=== PATIENT | female | born 1990 | race Caucasian/White ===

== ENCOUNTER 2017-01-02 18:30 | Inpatient (IN) | payer OTHER, BC ==
[~2017-01-02] VITALS: Ht 175.3 cm; Wt 139.5 kg
[2017-01-02] MEDS: INSULIN REGULAR 250 UNITS in SODIUM CHLORIDE 0.9% 250ML 250 ML IV PRN ×2 (11:38→21:51)
[~2017-01-02 18:30] MED LIST: ALBUAER2 INH; CALC500T83 PO; PRENTAB26 PO
[2017-01-02] MEDS ORDERED: DEXTROSE 5% 1000ML 1,000 ML IV SCH (18:57)
[2017-01-02] MEDS ORDERED: SODIUM CHLORIDE 0.9% 1000ML 1,000 ML IV SCH (18:57)
[2017-01-02] MEDS ORDERED: LACTATED RINGER'S 1000ML 1,000 ML IV PRN (18:57)
[2017-01-02] MEDS ORDERED: DEXTROSE 50% 50 ML SYR IV PRN (19:00)
[2017-01-02] MEDS: LACTATED RINGER'S 1000ML 1,000 ML IV SCH (19:36)
[2017-01-02] MEDS: VANCOMYCIN INJ 1,000 MG in SODIUM CHLORIDE 0.9% 250ML 250 ML IV SCH (19:36)
--- NOTE | 2017-01-02 19:42 | HISTORY & PHYSICAL EXAMINATION ---
DATE OF ADMISSION: 01/02/2017 CHIEF COMPLAINT: Leakage of fluid. HISTORY OF PRESENT ILLNESS: The patient is a 26-year-old G1, P0 at 35 weeks and 3 days of gestation who felt a leakage of fluid from vagina at around 6:00 p.m. tonight and it has been coming as a gush and trickling since then. The fluid has been clear. No vaginal bleeding and no contractions, and she reports good movements. She denies headaches, change in her vision, nausea, vomiting, epigastric or right upper quadrant pain. She denies fever, chills, chest pain, or shortness of breath. Her has been complicated by: 1. History of PCOS before . She was on metformin until 12 weeks and then she stopped. 2. Class 3 obesity. She had baseline preeclamptic labs which were normal, growth scan every 6-8 weeks. Last growth scan was done on 12/23/16 and EFW was 27OO GRS. She was scheduled for NST b.i.d. after 36 weeks. 3. Gestational diabetes. She was started on glyburide; she is on 5 mg daily now and fingersticks have been stable. 4. Alcohol consumption during . She had 13 ounces of alcohol intake around 3 weeks of . She had a echo which was normal. PAST MEDICAL HISTORY: As above, history of asthma, history of PCOS, history of insulin resistance, and history of peanut allergy. PAST SURGICAL HISTORY: [place] teeth extraction and removal of gallbladder in 2011. SOCIAL HISTORY: The patient was a smoker and she quit in March of 2016. She used alcohol in first trimester as above. She denies drug use. She works as an EMT in the ambulance. MEDICATIONS: vitamins, glyburide 5 mg daily, calcium 500 mg daily, Ventolin HFA as needed. ALLERGIES: AMOXICILLIN CAUSED SYNCOPE, AMPICILLIN CAUSED A RASH, LEVAQUIN CAUSED HIVES AND A RASH, PEANUT OIL CAUSED ANAPHYLAXIS. LABORATORIES: Her blood type is A positive, antibody screen negative, rubella positive, RPR nonreactive, hepatitis B surface antigen negative, HIV negative. BUN, creatinine, AST, ALT were normal in first trimester. H\T\H was 13/39, and 1 hour Glucola was elevated during the first trimester and 3-hour OGGT was normal. Repeat H\T\H was 12/35 and a 1 hour Glucola was elevated and 3-hour OGGT was elevated. GBS is unknown. PHYSICAL EXAMINATION: GENERAL: The patient is alert, oriented x3. She is comfortably sitting in the bed. No complaints. VITAL SIGNS: Stable, afebrile. CARDIOVASCULAR SYSTEM: S1, S2, RRR. LUNGS: Clear to auscultation bilaterally. ABDOMEN: Soft, gravid, [place] 6-1/2 to 7 pounds, morbidly obese. EXTREMITIES: Nontender, no edema. PELVIC: She is grossly ruptured, clear amniotic fluid. Nitrazine positive. Cervix is 4 cm, 50%, minus 3, vertex. heart rate 140s, not reactive yet. [place], no contractions. ASSESSMENT AND PLAN: The patient is a 26-year-old G1, P0 at 35 weeks and 3 days of gestation presenting with premature rupture of membranes. Vital signs stable, afebrile. heart rate reassuring. GBS unknown. She is in early labor. Plan is to admit, start IV fluids, IV insulin management per pharmacy and vancomycin for unknown GBS. I talked to the patient about being and the possible transfer of baby to [facility] where NICU available. She understands. I also talked to the pocket setter conservation of resources commissioner. She is aware and she plans to be in for delivery. BABAK
[2017-01-02 19:47] LABS: HEMATOCRIT 37.9 % (37-47); MEAN CELL VOLUME 88.6 fL (80-100); MEAN CORPUSCULAR HEMOGLOBIN 31.1 pg (25-34); MEAN CORPUSCULAR HGB CONC 35.1 g/dl (32-36); MEAN PLATELET VOLUME 12.5 fL (7.4-10.4); PLATELET COUNT 138 K/uL (130-400); RED BLOOD COUNT 4.28 M/uL (4.2-5.4); WHITE BLOOD COUNT 7.25 K/uL (4.8-10.8)
[2017-01-02 20:18] LABS: ALB/GLOB RATIO 0.6 (0.9-2); ALKALINE PHOSPHATASE 102 U/L (45-117); ALT/SGPT 33 U/L (12-78); AST/SGOT 46 U/L (15-37); BLOOD UREA NITROGEN 10 mg/dl (7-18); BUN/CREATININE RATIO 12.7 (10-20); CALCIUM 9.1 mg/dl (8.5-10.1); CARBON DIOXIDE 22 mmol/L (21-32); CHLORIDE 106 mmol/L (98-107); CREATININE 0.81 mg/dl (0.60-1.20); GLUCOSE 114 mg/dl (70-99); POTASSIUM 3.8 mmol/L (3.5-5.1); SODIUM 139 mmol/L (136-145)
[2017-01-02 21:00] VITALS: Ht 175.3 cm; Wt 139.5 kg
[2017-01-02] MEDS ORDERED: FENTANYL 2MCG/ML ROPIV 1.25MG/ML 100ML BAG EPI ONE (22:23)
[2017-01-02] MEDS ORDERED: FENTANYL CITRATE INJ 50 MCG/1 ML 2 ML VIAL ONE (22:23)
[2017-01-02] MEDS ORDERED: EpHEDrine SULFATE INJ 50 MG/ML AMP ONE (22:23)
[2017-01-02] MEDS ORDERED: BUPIVACAINE 0.25% 30 ML VIAL ONE (22:23)
[2017-01-02] MEDS ORDERED: EpHEDrine SULFATE INJ 50 MG/ML AMP IV PRN (23:00)
[2017-01-02] MEDS ORDERED: NALBUPHINE HCL INJ 10 MG/ML AMP IV PRN (23:00)
[2017-01-02] MEDS ORDERED: NALOXONE HCL INJ 0.4 MG/1 ML VIAL/CARP IV PRN (23:00)
[2017-01-02] MEDS ORDERED: DiphenhydrAMINE HCL 50 MG/ML VIAL IV PRN (23:00)
[2017-01-02] MEDS ORDERED: LACTATED RINGER'S 1000ML 500 ML IV PRN ×2 (23:00→23:25)
[2017-01-02] MEDS ORDERED: ONDANSETRON INJ 2 MG/ML 2 ML VIAL IV PRN (23:00)
[2017-01-02] MEDS ORDERED: NALOXONE HCL INJ 1 MG in SODIUM CHLORIDE 0.9% 1000ML 1,000 ML IV PRN (23:00)
[2017-01-02] MEDS ORDERED: OXYTOCIN 30 UNITS/500ML NSS IV PRN (23:30)
[2017-01-02] MEDS ORDERED: CALCIUM CARBONATE 500 MG CHEWABLE PO PRN (23:45)
[2017-01-02] MEDS ORDERED: GUAIFENESIN SUGAR FREE 100 MG/5 ML UDC PO PRN (23:45)
[2017-01-03] MEDS ORDERED: ONDANSETRON INJ 2 MG/ML 2 ML VIAL IV PRN
[2017-01-03] MEDS: INSULIN REGULAR 250 UNITS in SODIUM CHLORIDE 0.9% 250ML 250 ML IV PRN ×2 (00:49→01:47)
[2017-01-03] MEDS ORDERED: GLYB5TAB8 PO (05:09)
[2017-01-03] MEDS: LACTATED RINGER'S 1000ML 1,000 ML IV SCH (06:21)
[2017-01-03] MEDS ORDERED: BUPIVACAINE 0.25% 30 ML VIAL ONE (07:06)
[2017-01-03] MEDS ORDERED: FENTANYL CITRATE INJ 50 MCG/1 ML 2 ML VIAL ONE (07:07)
[2017-01-03] MEDS: FENTANYL 2MCG/ML ROPIV 1.25MG/ML 100ML BAG EPI PRN ×2 (07:11→07:58)
[2017-01-03] MEDS: VANCOMYCIN INJ 1,000 MG in SODIUM CHLORIDE 0.9% 250ML 250 ML IV SCH (07:21)
--- NOTE | 2017-01-03 07:34 | Progress Note ---
Progress Note Date of Service Jan 03, 2017. Progress Note Asked to redose epidural for pain. Pt having perineal pain w/ contractions. I informed pt that this is sometimes difficult to treat. On exam, pt had level around T8 b/l. I sat pt upright and gave 5 mL 0.25% bupivicaine and 100 mcg fentanyl in divided doses via epidural catheter from 1502-1867. Pt now feeling "much better". Vitals stable. heart tones unchanged.
[2017-01-03] MEDS ORDERED: ACETAMINOPHEN/CODEINE 300/30MG TAB PO PRN (10:15)
[2017-01-03] MEDS ORDERED: HYDROCORTISONE ACETATE 25 MG SUPP PR PRN (10:15)
[2017-01-03] MEDS ORDERED: OXYTOCIN 30 UNITS/500ML NSS IV PRN (10:15)
[2017-01-03] MEDS ORDERED: BENZOCAINE 20% AER SPR 82.5 GM CAN EXT PRN (10:15)
[2017-01-03] MEDS ORDERED: DIPHTHERIA/TETANUS/PERTUSSIS 0.5 ML SYR/VIAL IM. ONE (10:15)
[2017-01-03] MEDS ORDERED: MEASLES, MUMPS & RUBELLA VIRUS VIAL SQ. ONE (10:15)
[2017-01-03] MEDS ORDERED: SUPERCREAM 0.870 % 15GM JAR EXT PRN (10:15)
[2017-01-03] MEDS ORDERED: OXYCODONE/ACETAMINOPHEN 5-325 TAB PO PRN (10:15)
[2017-01-03] MEDS ORDERED: LANOLIN OINT EXT PRN ×2 (10:15)
[2017-01-03] MEDS ORDERED: ACETAMINOPHEN 325 MG TAB PO PRN (10:15)
--- NOTE | 2017-01-03 10:28 | Progress Note ---
Progress Note Date of Service Jan 03, 2017. Progress Note Delivery Note live female over intact perineum YOUNG with Apgars 8/9 weight pending. Cord blood obtained for cord collection. Placenta delivered spontaneously and intact. No tears. EBL 200 ml. Final sponge and needle instrument count are correct. Mom and baby stable.
--- NOTE | 2017-01-03 11:24 | Anesthesia Procedure Note ---
Anesthesia Epidural Removal Nt Date & Time Jan 03, 2017 at 11:24 Vital Signs Pain Intensity: 0.0 Notes Mental Status: alert / awake / arousable, participated in evaluation Nausea / Vomiting: adequately controlled Pain: adequately controlled Airway Patency, RR, SpO2: stable & adequate BP & HR: stable & adequate Hydration State: stable & adequate Neuraxial Anesthesia: was administered, sensory block is resolved Anesthetic Complications: no major complications apparent, pt satisfied with anesthetic care Epidural: removed without complications, with tip intact
[2017-01-03] MEDS: IBUPROFEN 600 MG TAB PO PRN ×2 (14:25→20:18)
[2017-01-03 15:30] VITALS: BP 127/82; PULSE 85; TEMP 36.4; O2SAT 97; O2SAT 99
[2017-01-03 15:39] VITALS: BP 123/80; PULSE 92; TEMP 36.8; O2SAT 98
[2017-01-03] MEDS ORDERED: NURSING VERBAL MED ORDER ONE (19:45)
[2017-01-03 20:10] VITALS: BP 132/84; PULSE 87; TEMP 36.9
[2017-01-03] MEDS: GUAIFENESIN SUGAR FREE 100 MG/5 ML UDC PO PRN (20:17)
[2017-01-03] MEDS: DOCUSATE SODIUM 100 MG CAP PO SCH (20:19)
[2017-01-03] MEDS: ACETAMINOPHEN/CODEINE 300/30MG TAB PO PRN (20:19)
[2017-01-04 00:20] VITALS: BP 112/75; PULSE 87; TEMP 36.7
[2017-01-04 05:00] VITALS: BP 104/65; PULSE 97; TEMP 37.1
[2017-01-04 06:43] LABS: HEMATOCRIT 34.5 % (37-47)
[2017-01-04] MEDS: IBUPROFEN 600 MG TAB PO PRN ×3 (07:09→19:56)
[2017-01-04] MEDS: ACETAMINOPHEN/CODEINE 300/30MG TAB PO PRN ×2 (07:09→15:35)
[2017-01-04 07:30] VITALS: BP 112/75; PULSE 96; TEMP 36.7
[2017-01-04] MEDS ORDERED: PRENATAL VITAMIN TAB PO SCH (08:00)
[2017-01-04] MEDS ORDERED: FERROUS SULFATE 325 MG TAB PO SCH (08:00)
[2017-01-04] MEDS: DOCUSATE SODIUM 100 MG CAP PO SCH ×2 (08:16→19:57)
[2017-01-04] MEDS: GUAIFENESIN SUGAR FREE 100 MG/5 ML UDC PO PRN ×3 (08:17→19:56)
--- NOTE | 2017-01-04 10:01 | OB/GYN Progress Note ---
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 Subjective conversation w/ patient, physical exam Ambulation: ambulating normally Voiding: no voiding problems Passing Gas: Yes Diet Tolerance: Regular Diet Lochia: Moderate Feeding Type: Breast Feeding Review of Systems Constitutional: No chills, No fatigue, No fever, No problem reported, No sweats , No weakness, No weight loss Respiratory: No cough, No dyspnea at rest, No dyspnea on exertion, No hemoptysis, No problem reported, No shortness of breath, No sputum, No wheezing Cardiac: No PND, No chest pain, No claudication, No edema, No orthopnea, No palpitations, No problem reported Breast: No breast lump, No breast pain, No change in shape, No nipple discharge , No problem reported, No see HPI Abdomen: No GI bleeding, No constipation, No diarrhea, No nausea, No pain, No problem reported, No vomiting Female : No abnormal vaginal bleeding, No dysuria, No hematuria, No incontinence, No problem reported, No see HPI, No urinary frequency, No vaginal discharge VD day 31 pt doing well anticipate disch tomorrow Objective Vital Signs Date Time Temp Pulse Resp B/P Pulse Ox O2 Delivery O2 Flow Rate FiO2 01/04/17 07:30 36.7 96 18 112/75 Room Air 01/04/17 07:30 Room Air 01/04/17 05:00 37.1 97 18 104/65 Room Air 01/04/17 00:20 Room Air 01/04/17 00:20 36.7 87 18 112/75 Room Air 01/03/17 20:10 36.9 87 20 132/84 Room Air 01/03/17 15:39 36.8 92 16 123/80 98 Room Air 01/03/17 15:30 97 Room Air 01/03/17 15:30 36.4 85 18 127/82 99 Room Air 01/03/17 14:00 Room Air Laboratory Results Last 24 Hours Test 01/04/17 06:19 Hemoglobin 12.0 g/dL Hematocrit 34.5 %
[2017-01-04 16:00] VITALS: BP 115/77; PULSE 97; TEMP 36.8
[2017-01-04] MEDS ORDERED: BISACODYL 5 MG TABEC PO SCH (20:00)
[2017-01-05] MEDS: IBUPROFEN 600 MG TAB PO PRN ×2 (00:04→06:07)
[2017-01-05 00:05] VITALS: BP 128/83; PULSE 84; TEMP 36.3
[2017-01-05] MEDS: GUAIFENESIN SUGAR FREE 100 MG/5 ML UDC PO PRN (06:07)
[2017-01-05] MEDS ORDERED: BISACODYL 10 MG SUPP PR PRN (07:00)
--- NOTE | 2017-01-05 07:03 | OB/GYN Progress Note ---
POOL CLEANER Progress Note Date of Service Jan 05, 2017. Subjective conversation w/ patient, physical exam Ambulation: ambulating normally Voiding: no voiding problems Passing Gas: Yes Diet Tolerance: Regular Diet Lochia: Moderate Feeding Type: Breast Feeding Review of Systems Constitutional: No chills, No fatigue, No fever, No problem reported, No sweats , No weakness, No weight loss Respiratory: No cough, No dyspnea at rest, No dyspnea on exertion, No hemoptysis, No problem reported, No shortness of breath, No sputum, No wheezing Cardiac: No PND, No chest pain, No claudication, No edema, No orthopnea, No palpitations, No problem reported Breast: No breast lump, No breast pain, No change in shape, No nipple discharge , No problem reported, No see HPI Abdomen: No GI bleeding, No constipation, No diarrhea, No nausea, No pain, No problem reported, No vomiting Female : No abnormal vaginal bleeding, No dysuria, No hematuria, No incontinence, No problem reported, No see HPI, No urinary frequency, No vaginal discharge VD day #3 pt doing well no complaints d/c home with instructions Objective Vital Signs Date Time Temp Pulse Resp B/P Pulse Ox O2 Delivery O2 Flow Rate FiO2 01/05/17 00:05 36.3 84 20 128/83 Room Air 01/05/17 00:05 Room Air 01/04/17 16:00 36.8 97 18 115/77 Room Air 01/04/17 16:00 Room Air 01/04/17 07:30 36.7 96 18 112/75 Room Air 01/04/17 07:30 Room Air
[2017-01-05 07:15] VITALS: BP 135/85; PULSE 94; TEMP 36.7
[2017-01-05] MEDS ORDERED: MTR600X PO (07:17)
--- NOTE | 2017-01-05 07:19 | Discharge Instructions ---
Discharge Instructions Admission Reason for Admission: Check Rupture Discharge Discharge Diagnosis / Problem: Discharge Goals Goal(s): Routine recovery after delivery Activity Recommendations Activity Limitations: as noted below ACTIVITY RECOMMENDATIONS: * Gradual return to full activity over the next 2-3 weeks. * No lifting - nothing heavier than baby over the next 2-3 weeks. * Do not engage in vigorous exercise, sexual activity or sports until cleared by your physician. * Do not drive or operate any motorized equipment until cleared by your physician. * You may shower/bathe daily. BREAST CARE: If you are not breast feeding: * Wear a supportive bra 24 hours a day for one to two weeks. * Avoid stimulating your breasts and nipples as much as possible during the first few weeks after delivery. * When taking a shower, have the warm water hit your back, not breasts. * When your breasts feel full, apply ice packs. Usually three to four times a day helps ease the discomfort. * Take a mild pain medication (Tylenol/Motrin) when you are uncomfortable. If breast feeding: * Use breast milk to lubricate nipples. Lansinoh cream may be used for sore nipples. You do not need to remove cream prior to breast feeding. If using a different brand of cream, check the label for directions regarding removal of cream prior to nursing. * Wear a supportive bra. * If having problems with breasts or breast feeding, call a erp consultant or your health care provider. EPISIOTOMY CARE: After delivery, if you have an episiotomy (stitches), the following steps will ease discomfort and aid healing. * For the first 24 hours after delivery, place ice packs next to your episiotomy to help reduce swelling. * After the first 24 hour-period, sitz baths, either portable or in the tub, are suggested. A shower with a shower arm sprayed over the episiotomy may be comforting. * Samantha care should be done after each voiding and bowel movement. Squirt warm water from a plastic bottle over the perineum (region of the body between the anus and urinary opening) and pat dry. * Use Dermoplast to ease discomfort. Shake container. Adkins directly over the episiotomy. * Place a Tucks on a clean sanitary pad next to your episiotomy. OVER THE COUNTER MEDICATION: * For discomfort or pain, you may use Acetaminophen (Tylenol), Ibuprofen (Advil ), or Naproxen (Aleve) following the package directions. * For constipation you may use Colace following the package directions. SPECIAL CARE INSTRUCTIONS: When you are discharged from the hospital, it is important for you to follow the instructions listed below: * During the first week at home, you should be able to care for yourself and your baby. In addition, the usual light household activities are encouraged. * Limit your activities to the way you feel. Do not try to clean the house or move furniture. Be sensible. * If you actively engage in sports and have done so up until the time of your delivery, you may resume these activities as soon as you feel able. This may take up to one month or even longer. Use good judgment. * Continue to take your vitamins for at least six weeks after the of your baby. * Your diet need not be limited unless you were on a special diet before your delivery. Breast-feeding mothers need around 2500 calories per day and at least 64-80 ounces of fluid per day (8 to 10 glasses). * You should eat foods from the four major food groups. Crash diets or fad diets are to be avoided. Eating lean meats, fresh fruits and vegetables, low-fat dairy products, high fiber foods and a regular exercise program, will help you get back to your pre- weight without putting your health at risk. * Constipation is sometimes a problem after delivery. Take a mild laxative as needed. If breast feeding, Milk of Magnesia is acceptable to use. You may use a suppository or Fleets enema if no episiotomy. * A daily shower or tub bath is suggested. Be sure to thoroughly and gently dry the perineum. * A bloody vaginal discharge will usually continue until around four weeks post . A small amount of bleeding may continue for as long as six weeks. Vaginal discharge changes from the bright red bleeding after delivery to pink then brownish and finally yellowish-pink before becoming white and disappearing. * Bleeding may increase with activity. Your first period may come in 4-8 weeks. If you are breast feeding, your period may be delayed even longer. * [place] (sex) can begin whenever both you and your partner feel comfortable and do not have any form of genital infection. It is recommended that you wait until after your return appointment and discuss with your physician. If you have questions, please talk to your health care practitioner. A condom should be used to prevent infection and . * Foreplay, gentle intercourse and lubrication is very important the first several times to prevent pain. A water-based lubricant such as K-Y jelly or Astroglide may be used. * Tampons may be used six weeks after delivery. * Douching should be avoided for 6 weeks after delivery. * If you have RH negative blood and your baby is RH positive, you will receive RHOGAM by injection prior to discharge. The nurse will give you a card to keep with you that has the date and place that you received RHOGAM after delivery. * During your care, you had a Rubella screen done to check for the presence of rubella antibodies in your blood. If your test was negative, you will receive a Rubella vaccine prior to discharge. This vaccine may cause a fever, soreness at the injection site and flu-like symptoms. If these symptoms persist, notify your health care practitioner. is not advised for three months after a Rubella vaccine. There is a higher chance of having a baby with defects if conceived within three months of getting the vaccine. * If you were discharged 24 hours from delivery or before 48 hours: Visiting nurses will come to your home 48 hours after discharge to assess you and your baby. The visiting nurse will meet with you while you are in the hospital to arrange a time and get directions to your home. * Verbalizes understanding of car seat law as reviewed with patient nursing. * Car Seat hand-out given and reviewed with patient by nursing. * Shaken baby information reviewed with patient by nursing. Call you doctor if: * Heavy bleeding (saturating several pads an hour) or passing clots the size of your fist. * A fever >101 degrees F (38.3 degrees C) on two occasions four hours apart and/or chills. * Unusual pain in the pelvic or vaginal areas. * "Baby Blues" lasting longer than two weeks. If you have any questions or concerns, call your health care practitioner at . FOLLOW-UP VISIT: * Please call the office at to schedule a 6 week examination. It is important you keep this appointment. * It is important for you to make arrangements for either yearly or twice yearly check-ups thereafter. . Current Hospital Diet Patient's current hospital diet: Regular OB Diet Discharge Diet Recommended Diet: Regular Diet Pending Studies Studies pending at discharge: no Medical Emergencies . Who to Call and When: Medical Emergencies: If at any time you feel your situation is an emergency, please call 911 immediately. . Non-Emergent Contact Non-Emergency issues call your: Specialist . . "Provider Documentation" section prepared by eJm Acosta. VTE Core Measure Inpt VTE Proph given/why not?: Treatment not indicated
[2017-01-05] MEDS: DOCUSATE SODIUM 100 MG CAP PO SCH (08:12)
[2017-01-05 10:55] VITALS: BP_DIAS 85; PULSE 94; TEMP 36.7
[2017-05-31] MEDS ORDERED: GLC/500 PO (14:44)
== END 2017-01-05 10:55 | disposition home or self-care (01) | DRG 775 ==
LOC: C.LD 18:30 → C.OPB 18:30 → C.LD 19:01 → C.OBG 01-03 14:06
PROVIDERS: ADMIT Obstetrics & Gynecology; ATTEND Obstetrics & Gynecology
PROC: 10E0XZZ Delivery of Products of Conception, External Approach (ICD-10-PCS; principal; 2017-01-03)
DX: O42.913 Preterm premature rupture of membranes, unspecified as to length of time between rupture and onset of labor, third trimester (principal); O24.425 Gestational diabetes mellitus in childbirth, controlled by oral hypoglycemic drugs; O99.214 Obesity complicating childbirth; Z3A.35 35 weeks gestation of pregnancy; Z37.0 Single live birth; E66.9 Obesity, unspecified; Z79.899 Other long term (current) drug therapy

== ENCOUNTER 2017-05-30 14:23 | Emergency (ER) | payer OTHER, BC ==
[~2017-05-30] VITALS: Ht 175.3 cm; Wt 145.6 kg
[~2017-05-30 14:23] MED LIST changes: +GLYB5TAB8 PO; +MTR600X PO
[2017-05-30 14:29] VITALS: Ht 175.3 cm; Wt 145.6 kg
[2017-05-30] MEDS ORDERED: ONDANSETRON INJ 2 MG/ML 2 ML VIAL IV STA (14:55)
[2017-05-30] MEDS ORDERED: SODIUM CHLORIDE 0.9% 1000ML 1,000 ML IV STA (14:55)
[2017-05-30] MEDS ORDERED: ACETAMINOPHEN 500 MG TAB PO STA (14:55)
[2017-05-30 15:30] VITALS: TEMP 36.7
[2017-05-30 15:34] LABS: BASO % 0.1 %; BASO ABS # 0.01 K/uL (0-0.2); COMPLETE YES; EOS % 1.6 %; IG% 0.2 %; LYMPH % 9.6 %; LYMPH ABS # 0.91 K/uL (1.2-3.4); MEAN CELL VOLUME 88.1 fL (80-100); MEAN CORPUSCULAR HEMOGLOBIN 30.6 pg (25-34); MEAN CORPUSCULAR HGB CONC 34.8 g/dl (32-36); MEAN PLATELET VOLUME 11.2 fL (7.4-10.4); MONO % 5.4 %; NEUT % 83.1 %; PLATELET COUNT 219 K/uL (130-400); RED BLOOD COUNT 4.77 M/uL (4.2-5.4); WHITE BLOOD COUNT 9.49 K/uL (4.8-10.8)
[2017-05-30 15:46] LABS: PARTIAL THROMBOPLASTIN RATIO 0.9; PROTHROMBIN TIME (PATIENT) 10.2 SECONDS (9.0-12.0)
[2017-05-30 15:52] LABS: BUN/CREATININE RATIO 17.9 (10-20); CALCIUM 9.2 mg/dl (8.5-10.1); CREATININE 0.95 mg/dl (0.60-1.20); POTASSIUM 3.7 mmol/L (3.5-5.1)
[2017-05-30 16:08] LABS: PREG INTERNAL NEGATIVE QC NEG CLEAR BACKGROUND; PREG INTERNAL POSITIVE QC POS CONTROL LINE
--- NOTE | 2017-05-30 17:03 | DIAGNOSTIC IMAGING REPORT ---
HEAD WITHOUT CONTRAST (CT) CLINICAL HISTORY: 27 years-old Female with syncope/headache. TECHNIQUE: Multiple axial CT images of the head were obtained without contrast. A dose lowering technique was utilized adhering to the principles of ALARA. CT DOSE: 720.95 mGycm COMPARISON: 10/21/2015. FINDINGS: No acute intracranial hemorrhage, midline shift, mass, large territorial ischemia or abnormal extra-axial collection. Brain parenchyma appears normal. The calvarium is intact. The paranasal sinuses, mastoid air cells, and middle ear cavities are clear. IMPRESSION: No acute intracranial abnormality. The above report was generated using voice recognition software. It may contain grammatical, syntax or spelling errors. Electronically signed by: Ronnie Marquez M.D. 05/30/2017 5:02 PM Dictated Date/Time: 05/30/2017 5:01 PM
--- NOTE | 2017-05-30 17:31 | DIAGNOSTIC IMAGING REPORT ---
CHEST 2 VIEWS ROUTINE, STERNUM MIN 2 VIEWS HISTORY: 27 years-old Female syncope COMPARISON: Chest radiograph 12/03/2015 TECHNIQUE: 2 views of the chest with 3 views of the sternum FINDINGS: CHEST: Cardiomediastinal and hilar silhouettes are within normal limits. There is no pneumothorax or pleural effusion. There is resolution of the previously described nodular right upper lobe airspace opacities. The bones appear to be intact grossly. Surgical clips in the upper abdomen suggest prior cholecystectomy. STERNUM: On image 3 of 3, there is apparent slight cortical step-off of the inferior sternum anteriorly near the xiphoid process. The remainder of the sternum appears unremarkable. IMPRESSION: 1. No acute cardiopulmonary process. No pneumothorax. 2. Slight cortical step off of the inferior most sternal cortex anteriorly suspicious for acute fracture near the xiphoid process. Correlate with point tenderness. The above report was generated using voice recognition software. It may contain grammatical, syntax or spelling errors. Electronically signed by: Ronnie Marquez M.D. 05/30/2017 5:30 PM Dictated Date/Time: 05/30/2017 5:25 PM
[2017-05-30 17:43] VITALS: O2SAT 99
--- NOTE | 2017-05-30 18:33 | EMERGENCY ROOM VISIT NOTE ---
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 "That's the last thing I remember." pt had syncopal episode ground level. +LOC for approximately 10-15 seconds. prehospital sabrina received 4mg zofran sublingual pt is 4-5 months post . patient states she got period on but period was 10 days late. pt unsure if she is at this time. patient states she continues to feel dizzy when she stands. History of Present Illness The patient is a 27 year old female who presents to the Emergency Room via EMS with complaints of syncopal episode. The patient states that she was at the scene of an EMS call and she was in a house and got very very hot. She then started feeling nauseated. She stepped outside and felt lightheaded so she leaned against a railing. The patient states the next thing she knows was someone was calling her name. She was laying on the ground. A title inspector that was at the scene stated that they saw her fall backwards. The patient does not know if she hit her head. The patient does admit to a headache but denies any visual changes dizziness. She still complains of nausea but denies any vomiting. The patient is also complaining of pain at the lower portion of her sternum on palpation. The patient denies any chest pain or shortness of breath. The patient denies any abdominal pain or any neck pain. The patient denies any back pain or extremity pain. The patient states there is a chance she could be . She states that urine test do not work on her. The patient does admit to passing out on several occasions in the past . She states that she has had to vagal syncope episodes when she was 14 and 20. She also had a syncopal episode after taking amoxicillin approximately one and a half years ago. Review of Systems 10 system review was performed and was negative unless stated otherwise history of present illness. Past Medical/Surgical History Medical Problems: (1) Asthma, Unspecified (2) CAP (community acquired pneumonia) (3) CAP (community acquired pneumonia) (4) Cholelithiasis without obstruction (5) PCOS (polycystic ovarian syndrome) (6) Pre-diabetes (7) premature rupture of membranes in third trimester (8) URIC ACID NEPHROLITHIAS Surgical Problems: (1) History of cholecystectomy (2) History of wisdom tooth extraction Family History Diabetes mellitus FH: cancer FH: diabetes mellitus FH: gallbladder disease FH: heart disease FH: hypertension FH: kidney disease FH: lung disease Social History Smoking Status: Former Smoker Alcohol Use: occasionally Drug Use: none Marital Status: in relationship Housing Status: lives with family Occupation Status: employed Current/Historical Medications Scheduled Metformin Hcl (Glucophage), 500 MG PO DAILY Allergies Coded Allergies: Amoxicillin (Verified Allergy, Severe, ELAVATED BP/PASSED OUT, 01/02/17) Levofloxacin (Verified Allergy, Intermediate, Rash, 01/02/17) Ampicillin (Verified Allergy, Mild, RASH, 01/02/17) noted 12/03/15 Sulbactam (Verified Allergy, Mild, RASH, 01/02/17) noted 12/03/15 Peanut (Verified Allergy, Unknown, ., 01/02/17) Physical Exam Vital Signs Date Time Temp Pulse Resp B/P (MAP) Pulse Ox O2 Delivery O2 Flow Rate FiO2 05/30/17 17:43 95 20 121/63 99 Room Air 05/30/17 15:30 36.7 103 18 103/64 97 Room Air 05/30/17 15:20 103 05/30/17 15:15 94 129/76 105 103/66 05/30/17 14:29 36.7 99 18 124/73 97 Room Air Physical Exam GENERAL: Obese 27-year-old female appears in no acute distress. MENTAL Status: Alert and oriented 3. HEAD: Atraumatic, nontender to palpation. EYES: PERRLA. EOMs intact. EARS: Canals clear. TMs without hemotympanum NECK: Supple, no lymphadenopathy noted. No carotid bruits noted. LUNGS: Clear auscultation without wheezes rales or rhonchi. CARDIAC: Regular rate and rhythm without murmur. Pulses is full and equal throughout. CHEST WALL: The patient is nontender to palpation over the ribs. She does have tenderness palpation over the lower sternum. No bony abnormality noted. ABDOMEN: Positive bowel sounds all 4 quadrants. Soft, nontender to palpation without organomegaly or masses. SPINE: Entire spine nontender to palpation. MUSCULOSKELETAL: Patient is able to move her arms and legs without difficulty. NEURO:Cranial nerves two through 12 intact. Cerebellar function intact with [id number]. Fine motor intact with alternating finger motions. Medical Decision & Procedures ER Provider Diagnostic Interpretation: CHEST 2 VIEWS ROUTINE, STERNUM MIN 2 VIEWS HISTORY: 27 years-old Female syncope COMPARISON: Chest radiograph 12/03/2015 TECHNIQUE: 2 views of the chest with 3 views of the sternum FINDINGS: CHEST: Cardiomediastinal and hilar silhouettes are within normal limits. There is no pneumothorax or pleural effusion. There is resolution of the previously described nodular right upper lobe airspace opacities. The bones appear to be intact grossly. Surgical clips in the upper abdomen suggest prior cholecystectomy. STERNUM: On image 3 of 3, there is apparent slight cortical step-off of the inferior sternum anteriorly near the xiphoid process. The remainder of the sternum appears unremarkable. IMPRESSION: 1. No acute cardiopulmonary process. No pneumothorax. 2. Slight cortical step off of the inferior most sternal cortex anteriorly CHEST 2 VIEWS ROUTINE, STERNUM MIN 2 VIEWS HISTORY: 27 years-old Female syncope COMPARISON: Chest radiograph 12/03/2015 TECHNIQUE: 2 views of the chest with 3 views of the sternum FINDINGS: CHEST: Cardiomediastinal and hilar silhouettes are within normal limits. There is no pneumothorax or pleural effusion. There is resolution of the previously described nodular right upper lobe airspace opacities. The bones appear to be intact grossly. Surgical clips in the upper abdomen suggest prior cholecystectomy. STERNUM: On image 3 of 3, there is apparent slight cortical step-off of the inferior sternum anteriorly near the xiphoid process. The remainder of the sternum appears unremarkable. IMPRESSION: 1. No acute cardiopulmonary process. No pneumothorax. 2. Slight cortical step off of the inferior most sternal cortex anteriorly HEAD WITHOUT CONTRAST (CT) CLINICAL HISTORY: 27 years-old Female with syncope/headache. TECHNIQUE: Multiple axial CT images of the head were obtained without contrast. A dose lowering technique was utilized adhering to the principles of ALARA. CT DOSE: 720.95 mGycm COMPARISON: 10/21/2015. FINDINGS: No acute intracranial hemorrhage, midline shift, mass, large territorial ischemia or abnormal extra-axial collection. Brain parenchyma appears normal. The calvarium is intact. The paranasal sinuses, mastoid air cells, and middle ear cavities are clear. IMPRESSION: No acute intracranial abnormality. The above report was generated using voice recognition software. It may contain grammatical, syntax or spelling errors. Laboratory Results 05/30/17 15:15 Red Blood Count 4.77, Mean Corpuscular Volume 88.1, Mean Corpuscular Hemoglobin 30.6, Mean Corpuscular Hemoglobin Concent 34.8, Mean Platelet Volume 11.2, Neutrophils (%) (Auto) 83.1, Lymphocytes (%) (Auto) 9.6, Monocytes (%) (Auto) 5.4, Eosinophils (%) (Auto) 1.6, Basophils (%) (Auto) 0.1, Neutrophils # (Auto) 7.89, Lymphocytes # (Auto) 0.91, Monocytes # (Auto) 0.51, Eosinophils # (Auto) 0.15, Basophils # (Auto) 0.01 05/30/17 15:15 Test 05/30/17 15:15 White Blood Count 9.49 K/uL (4.8-10.8) Red Blood Count 4.77 M/uL (4.2-5.4) Hemoglobin 14.6 g/dL (12.0-16.0) Hematocrit 42.0 % (37-47) Mean Corpuscular Volume 88.1 fL (80-100) Mean Corpuscular Hemoglobin 30.6 pg (25-34) Mean Corpuscular Hemoglobin Concent 34.8 g/dl (32-36) Platelet Count 219 K/uL (130-400) Mean Platelet Volume 11.2 fL (7.4-10.4) Neutrophils (%) (Auto) 83.1 % Lymphocytes (%) (Auto) 9.6 % Monocytes (%) (Auto) 5.4 % Eosinophils (%) (Auto) 1.6 % Basophils (%) (Auto) 0.1 % Neutrophils # (Auto) 7.89 K/uL (1.4-6.5) Lymphocytes # (Auto) 0.91 K/uL (1.2-3.4) Monocytes # (Auto) 0.51 K/uL (0.11-0.59) Eosinophils # (Auto) 0.15 K/uL (0-0.5) Basophils # (Auto) 0.01 K/uL (0-0.2) RDW Standard Deviation 38.9 fL (36.4-46.3) RDW Coefficient of Variation 12.2 % (11.5-14.5) Immature Granulocyte % (Auto) 0.2 % Immature Granulocyte # (Auto) 0.02 K/uL (0.00-0.02) Prothrombin Time 10.2 SECONDS (9.0-12.0) Prothromb Time International Ratio 1.0 (0.9-1.1) Activated Partial Thromboplast Time 22.4 SECONDS (21.0-31.0) Partial Thromboplastin Ratio 0.9 Anion Gap 8.0 mmol/L (3-11) Est Creatinine Clear Calc Drug Dose 140.0 ml/min Estimated GFR () 96.5 Estimated GFR (Non- 83.2 BUN/Creatinine Ratio 17.9 (10-20) Calcium Level 9.2 mg/dl (8.5-10.1) Human Chorionic Gonadotropin, Qual NEG (NEG) Medications Administered Medications (Trade) Dose Ordered Sig/Daniel Route Start Time Stop Time Status Last Admin Dose Admin Sodium Chloride 1,000 ml @ 999 mls/hr Q1H1M STAT IV 05/30/17 14:55 05/30/17 15:55 DC 05/30/17 15:21 999 MLS/HR Ondansetron HCl (Zofran Inj) 4 mg NOW STAT IV 05/30/17 14:55 05/30/17 14:59 DC 05/30/17 15:20 4 MG Acetaminophen (Tylenol Tab) 1,000 mg NOW STAT PO 05/30/17 14:55 05/30/17 14:59 DC 05/30/17 15:21 1,000 MG ECG Indication: syncope Rhythm: normal sinus Findings: no acute ischemic change ED Course The patient was evaluated. The patient's EMR medication list were reviewed. IV access was obtained. She was placed on a monitor. EKG was ordered interpreted as above without any acute findings.. The patient was given 1 L normal saline wide-open. She was given Tylenol 1 g by mouth for headache and Zofran 4 mg IV push for nausea. CBC and differential, renal profile, coags, beta hCG was ordered. Labs are reviewed and were unremarkable. The nurse started to do the patient's orthostatic vitals. When she was lying down her blood pressure was 129/76. When she sat the patient up her blood pressure was 103/66 and the patient felt very dizzy therefore the nurse did not stand her up to get standing vitals. The patient will receive a second liter of saline wide- open. CT of the head was ordered and interpreted by the radiologist as above any acute findings. X-ray of the sternum and chest were ordered and interpreted by the radiologist and myself as above with a small cortical step- off consistent with cortical fracture. The patient was able to get up and walk without feeling dizzy after receiving the 2 L of saline. She still was complaining of a headache. I offered her additional pain medication but she declined. The patient was discharged home in stable condition. Medical Decision Differential diagnosis include vasovagal syncope, dehydration, orthostatic hypotension, brain neoplasm,, cardiac arrhythmia Impression Primary Impression: Syncope Additional Impressions: Orthostatic hypotension Sternal fracture Departure Information Dispostion Home / Self-Care Condition GOOD Referrals No Doctor, Assigned (PCP) Forms HOME CARE DOCUMENTATION FORM, IMPORTANT VISIT INFORMATION Patient Instructions My [facility], Syncope Additional Instructions Stay well hydrated especially when it is very hot and humid. Follow-up with your family doctor next week for reevaluation. If you have any recurrent episodes return to ER immediately. Tylenol as needed for headache. Problem Qualifiers Primary Impression: Syncope Syncope type: heat syncope Encounter type: initial encounter Qualified Codes: T67.1XXA - Heat syncope, initial encounter Additional Impressions: Sternal fracture Encounter type: initial encounter Sternal location: body of sternum Fracture type: closed Qualified Codes: S22.22XA - Fracture of body of sternum , initial encounter for closed fracture
[2017-05-30 18:36] VITALS: BP 122/73; PULSE 102
[2017-05-31] MEDS ORDERED: GLC/500 PO (14:44)
== END 2017-05-30 18:47 | disposition home or self-care (01) ==
LOC: EDBD 14:23 → C.EDB 14:23
DX: T67.1XXA Heat syncope, initial encounter (principal); I95.1 Orthostatic hypotension; S22.22XA Fracture of body of sternum, initial encounter for closed fracture; X58.XXXA Exposure to other specified factors, initial encounter; J45.909 Unspecified asthma, uncomplicated; E28.2 Polycystic ovarian syndrome; R73.03 Prediabetes; Z83.3 Family history of diabetes mellitus; Z82.49 Family history of ischemic heart disease and other diseases of the circulatory system; Z87.891 Personal history of nicotine dependence

== ENCOUNTER 2017-05-31 16:48 | Emergency (ER) | payer OTHER, BC ==
[~2017-05-31] VITALS: Ht 175.3 cm; Wt 143.4 kg
[~2017-05-31 16:48] MED LIST changes: -ALBUAER2 INH; -CALC500T83 PO; +GLC/500 PO; -GLYB5TAB8 PO; -MTR600X PO; -PRENTAB26 PO
[2017-05-31 16:50] VITALS: TEMP 37; Ht 175.3 cm; Wt 143.4 kg
[2017-05-31] MEDS ORDERED: ONDANSETRON INJ 2 MG/ML 2 ML VIAL IV STA (17:37)
[2017-05-31] MEDS ORDERED: SODIUM CHLORIDE 0.9% 1000ML 1,000 ML IV STA (17:37)
[2017-05-31 18:05] LABS: URINE APPEARANCE CLEAR (CLEAR); URINE BILIRUBIN NEG (NEG); URINE COLOR YELLOW; URINE EPITHELIAL CELL AUTO 20-30 /lpf (0-5); URINE NITRITE NEG (NEG); URINE PH 5.5 (4.5-7.5); URINE SPECIFIC GRAVITY 1.014 (1.000-1.030); UROBILINOGEN NEG (NEG)
[2017-05-31 18:08] LABS: MANUAL MICROSCOPIC REQUIRED? NO; REVIEW REQ? NO
[2017-05-31 18:17] LABS: ALT/SGPT 29 U/L (12-78); AST/SGOT 17 U/L (15-37); BLOOD UREA NITROGEN 13 mg/dl (7-18); BUN/CREATININE RATIO 15.6 (10-20); CALCIUM 8.9 mg/dl (8.5-10.1); CARBON DIOXIDE 28 mmol/L (21-32); CHLORIDE 110 mmol/L (98-107); GLUCOSE 91 mg/dl (70-99); POTASSIUM 3.7 mmol/L (3.5-5.1); SODIUM 141 mmol/L (136-145)
[2017-05-31 18:18] LABS: PREG INTERNAL NEGATIVE QC NEG CLEAR BACKGROUND; PREG INTERNAL POSITIVE QC POS CONTROL LINE
[2017-05-31 18:20] LABS: ALKALINE PHOSPHATASE 86 U/L (45-117)
--- NOTE | 2017-05-31 18:28 | EMERGENCY ROOM VISIT NOTE ---
History Report prepared by Shanti: April Guan Under the Supervision of: Dr. Uri Marcelino D.O. First contact with patient: 17:31 Chief Complaint: ABDOMINAL PAIN Stated Complaint: RIGHT AB PAIN Nursing Triage Summary: Nausea, vomiting and abd pain (RLQ). hx of cholecystectomy History of Present Illness The patient is a 27 year old female who presents to the Emergency Room with complaints of intermittent abdominal pain starting this morning. She was seen in the ED yesterday after an episode of syncope. She did not have any abdominal pain at that time. The pain goes from her RLQ to the LUQ. She describes the pain as sharp and stabbing. She gets nauseous with the pain. She took Tylenol today at 1230 to no significant relief. She denies any back pain, rash, fever, or other symptoms. She is unsure if she has hematuria due to being on her period. Her current period was 10 days late and abnormal at first. She has a history of PCOS and insulin resistance. She has had kidney stones in the past, but states that her current pain is dissimilar. She has had a cholecystectomy. She still has her appendix. Source of History: patient Onset: this morning Position: abdomen (RLQ, LUQ) Quality: sharp, stabbing Timing: intermittent Associated Symptoms: + nausea, No fevers, No back pain, No rash Review of Systems See HPI for pertinent positives & negatives. A total of 10 systems reviewed and were otherwise negative. Past Medical & Surgical Medical Problems: (1) Asthma, Unspecified (2) CAP (community acquired pneumonia) (3) CAP (community acquired pneumonia) (4) Cholelithiasis without obstruction (5) PCOS (polycystic ovarian syndrome) (6) Pre-diabetes (7) premature rupture of membranes in third trimester (8) URIC ACID NEPHROLITHIAS Surgical Problems: (1) History of cholecystectomy (2) History of wisdom tooth extraction Family History Diabetes mellitus FH: cancer FH: diabetes mellitus FH: gallbladder disease FH: heart disease FH: hypertension FH: kidney disease FH: lung disease Social History Smoking Status: Former Smoker Alcohol Use: occasionally Drug Use: none Marital Status: in relationship Housing Status: lives with family Occupation Status: employed Current/Historical Medications Scheduled Metformin Hcl (Glucophage), 500 MG PO DAILY Allergies Coded Allergies: Amoxicillin (Verified Allergy, Severe, ELAVATED BP/PASSED OUT, 01/02/17) Levofloxacin (Verified Allergy, Intermediate, Rash, 01/02/17) Ampicillin (Verified Allergy, Mild, RASH, 01/02/17) noted 12/03/15 Sulbactam (Verified Allergy, Mild, RASH, 01/02/17) noted 12/03/15 Flu Virus Vaccine (Verified Allergy, Unknown, Unknown, 05/31/17) Peanut (Verified Allergy, Unknown, ., 01/02/17) Physical Exam Vital Signs Date Time Temp Pulse Resp B/P (MAP) Pulse Ox O2 Delivery O2 Flow Rate FiO2 05/31/17 19:38 75 18 129/75 98 Room Air 05/31/17 19:12 88 05/31/17 18:43 88 16 131/75 99 Room Air 05/31/17 16:50 37.0 95 16 111/78 98 Room Air Physical Exam GENERAL: Patient is awake, alert, and in no acute distress. Patient is resting comfortably and showing no signs of anxiety EYES: The conjunctivae are clear. The pupils are round and reactive. EARS, NOSE, MOUTH AND THROAT: The nose is without any evidence of any deformity. Mucous membranes are moist tongue is midline NECK: The neck is nontender and supple. RESPIRATORY: Normal respiratory effort is noted there is no evidence of wheezing rhonchi or rales CARDIOVASCULAR: Regular rate and rhythm noted there no murmurs rubs or gallops normal S1 normal S2 GASTROINTESTINAL: The abdomen is mildly distended but soft, right sided tenderness to palpation, no guarding or rigidity. MUSCULOSKELETAL/EXTREMITIES: There is no evidence of gross deformity full range of motion is noted in the hips and shoulders SKIN: There is no obvious evidence of any rash. There are no petechiae, pallor or cyanosis noted. NEUROLOGIC: Patient is awake alert and oriented x3 Medical Decision & Procedures ER Provider Diagnostic Interpretation: Radiology results as stated below per my review and radiologist interpretation: CT OF THE ABDOMEN AND PELVIS WITHOUT CONTRAST CLINICAL HISTORY: Right-sided abdominal pain. COMPARISON STUDY: CT of the abdomen and pelvis October 23, 2012 and renal ultrasound September 16, 2016. TECHNIQUE: Axial images of the abdomen and pelvis were obtained without IV contrast. Images were reviewed in the axial, sagittal, and coronal planes. A dose lowering technique was utilized adhering to the principles of ALARA. FINDINGS: No pneumatosis, free air or portal venous gas is present. There is no biliary ductal dilatation status post cholecystectomy. There is probable fatty infiltration of the liver. A splenule is present. Unenhanced images of the spleen, adrenal glands and pancreas are unremarkable. Mild mesenteric infiltration is unchanged since prior CT. No renal, ureteral or bladder calculi are present. There is no hydronephrosis. The caliber of small and large bowel are normal. The appendix is normal. There is no ascites or lymphadenopathy. Prominent mesenteric lymph nodes are unchanged. These are benign. No suspicious skeletal lesions are identified. IMPRESSION: 1. No urinary calculi or hydronephrosis. 2. No acute process within the abdomen or pelvis on unenhanced exam. Normal appendix. Electronically signed by: Tae Argueta M.D. 05/31/2017 6:56 PM Dictated Date/Time: 05/31/2017 6:49 PM Laboratory Results 05/31/17 18:23 Red Blood Count 4.04, Mean Corpuscular Volume 88.9, Mean Corpuscular Hemoglobin 30.9, Mean Corpuscular Hemoglobin Concent 34.8, Mean Platelet Volume 10.7, Neutrophils (%) (Auto) 64.1, Lymphocytes (%) (Auto) 27.4, Monocytes (%) (Auto) 4.8, Eosinophils (%) (Auto) 3.3, Basophils (%) (Auto) 0.2, Neutrophils # (Auto) 2.69, Lymphocytes # (Auto) 1.15, Monocytes # (Auto) 0.20, Eosinophils # (Auto) 0.14, Basophils # (Auto) 0.01 05/31/17 17:40 Test 05/31/17 17:30 05/31/17 17:40 05/31/17 18:23 Urine Color YELLOW Urine Appearance CLEAR (CLEAR) Urine pH 5.5 (4.5-7.5) Urine Specific [place] 1.014 (1.000-1.030) Urine Protein NEG (NEG) Urine Glucose (UA) NEG (NEG) Urine Ketones NEG (NEG) Urine Occult Blood 1+ (NEG) Urine Nitrite NEG (NEG) Urine Bilirubin NEG (NEG) Urine Urobilinogen NEG (NEG) Urine Leukocyte Esterase TRACE (NEG) Urine WBC (Auto) 1-5 /hpf (0-5) Urine RBC (Auto) 0-4 /hpf (0-4) Urine Hyaline Casts (Auto) 1-5 /lpf (0-5) Urine Epithelial Cells (Auto) 20-30 /lpf (0-5) Urine Bacteria (Auto) NEG (NEG) Anion Gap 3.0 mmol/L (3-11) Est Creatinine Clear Calc Drug Dose 164.8 ml/min Estimated GFR () 118.8 Estimated GFR (Non- 102.5 BUN/Creatinine Ratio 15.6 (10-20) Calcium Level 8.9 mg/dl (8.5-10.1) Total Bilirubin 0.3 mg/dl (0.2-1) Direct Bilirubin < 0.1 mg/dl (0-0.2) Aspartate Amino Transf (AST/SGOT) 17 U/L (15-37) Alanine Aminotransferase (ALT/SGPT) 29 U/L (12-78) Alkaline Phosphatase 86 U/L (45-117) Total Protein 7.1 gm/dl (6.4-8.2) Albumin 3.3 gm/dl (3.4-5.0) Lipase 176 U/L (73-393) Human Chorionic Gonadotropin, Qual NEG (NEG) White Blood Count 4.20 K/uL (4.8-10.8) Red Blood Count 4.04 M/uL (4.2-5.4) Hemoglobin 12.5 g/dL (12.0-16.0) Hematocrit 35.9 % (37-47) Mean Corpuscular Volume 88.9 fL (80-100) Mean Corpuscular Hemoglobin 30.9 pg (25-34) Mean Corpuscular Hemoglobin Concent 34.8 g/dl (32-36) Platelet Count 152 K/uL (130-400) Mean Platelet Volume 10.7 fL (7.4-10.4) Neutrophils (%) (Auto) 64.1 % Lymphocytes (%) (Auto) 27.4 % Monocytes (%) (Auto) 4.8 % Eosinophils (%) (Auto) 3.3 % Basophils (%) (Auto) 0.2 % Neutrophils # (Auto) 2.69 K/uL (1.4-6.5) Lymphocytes # (Auto) 1.15 K/uL (1.2-3.4) Monocytes # (Auto) 0.20 K/uL (0.11-0.59) Eosinophils # (Auto) 0.14 K/uL (0-0.5) Basophils # (Auto) 0.01 K/uL (0-0.2) RDW Standard Deviation 39.5 fL (36.4-46.3) RDW Coefficient of Variation 12.2 % (11.5-14.5) Immature Granulocyte % (Auto) 0.2 % Immature Granulocyte # (Auto) 0.01 K/uL (0.00-0.02) Laboratory results per my review. Medications Administered Medications (Trade) Dose Ordered Sig/Daniel Route Start Time Stop Time Status Last Admin Dose Admin Sodium Chloride 1,000 ml @ 999 mls/hr Q1H1M STAT IV 05/31/17 17:37 05/31/17 18:37 DC 05/31/17 18:01 999 MLS/HR Ondansetron HCl (Zofran Inj) 4 mg NOW STAT IV 05/31/17 17:37 05/31/17 17:38 DC 05/31/17 18:06 4 MG Oxycodone HCl (Roxicodone Immediate Rel 5MG Home Pack) 1 homepack UD ONCE PO 05/31/17 19:30 05/31/17 19:31 DC 05/31/17 19:35 1 HOMEPACK Ondansetron HCl (ZOFRAN ODT 4MG Home Pack) 1 homepack UD ONCE PO 05/31/17 19:30 05/31/17 19:31 DC 05/31/17 19:35 1 HOMEPACK ED Course 1735: The patient was evaluated in room C8. A complete history and physical examination were performed. 1737: Zofran Inj 4 mg IV, NSS 1000 ml @ 999 mls/hr IV. 4: Upon reevaluation, the patient is resting comfortably. I discussed the results and treatment plan with her. She verbalized agreement of the treatment plan. She was discharged home. 0: Ondansetron HCl 1 homepack PO, Oxycodone HCl 1 homepack PO. Medical Decision Prior records/ancillary studies reviewed. Triage Nursing notes reviewed. Additional history obtained from family. The patient's history was concerning for abdominal pain. Differential diagnosis: Etiologies such as appendicitis, diverticulitis, PUD, biliary pathology, UTI, pancreatitis, obstruction, mesenteric ischemia, aortic pathology, infections, inflammatory bowel disease, renal colic, as well as others were entertained. The patient is a 27-year-old female who presented to the emergency department for evaluation of right-sided abdominal pain. The patient is a history of kidney stone. The patient was treated with IV fluids and IV antiemetics. On subsequent reevaluation she was feeling much better. I discussed the patient's laboratory radiographic studies with her. She was encouraged to rest and avoid any strenuous activity. She was also encouraged call her primary care physician to schedule a follow-up appointment. Otherwise she was encouraged to return to the emergency Department immediately if symptoms change worsen or the need arises. I did review the patient's most recent visit which was for a syncopal episode within the last couple days. Medication Reconcilliation Current Medication List: was personally reviewed by me Blood Pressure Screening Patient's blood pressure: Normal blood pressure Blood pressure disposition: Did not require urgent referral Impression Primary Impression: Right lower quadrant abdominal pain Scribe Attestation The scribe's documentation has been prepared under my direction and personally reviewed by me in its entirety. I confirm that the note above accurately reflects all work, treatment, procedures, and medical decision making performed by me. Departure Information Dispostion Home / Self-Care Referrals Mann Bynum D.O. (PCP) Forms HOME CARE DOCUMENTATION FORM, IMPORTANT VISIT INFORMATION Patient Instructions ED Abdominal Pain Unkn Cause, My [facility] Additional Instructions Call your family to schedule a follow-up appointment. Drink plenty clear liquids. Continue all medications as prescribed. Continue using Motrin and Tylenol as directed for mild pain. If he were going to take strong pain medication I would recommend an [id number] stool softener.
--- NOTE | 2017-05-31 18:57 | DIAGNOSTIC IMAGING REPORT ---
CT OF THE ABDOMEN AND PELVIS WITHOUT CONTRAST CLINICAL HISTORY: Right-sided abdominal pain. COMPARISON STUDY: CT of the abdomen and pelvis October 23, 2012 and renal ultrasound September 16, 2016. TECHNIQUE: Axial images of the abdomen and pelvis were obtained without IV contrast. Images were reviewed in the axial, sagittal, and coronal planes. A dose lowering technique was utilized adhering to the principles of ALARA. FINDINGS: No pneumatosis, free air or portal venous gas is present. There is no biliary ductal dilatation status post cholecystectomy. There is probable fatty infiltration of the liver. A splenule is present. Unenhanced images of the spleen, adrenal glands and pancreas are unremarkable. Mild mesenteric infiltration is unchanged since prior CT. No renal, ureteral or bladder calculi are present. There is no hydronephrosis. The caliber of small and large bowel are normal. The appendix is normal. There is no ascites or lymphadenopathy. Prominent mesenteric lymph nodes are unchanged. These are benign. No suspicious skeletal lesions are identified. IMPRESSION: 1. No urinary calculi or hydronephrosis. 2. No acute process within the abdomen or pelvis on unenhanced exam. Normal appendix. Electronically signed by: Tae Argueta M.D. 05/31/2017 6:56 PM Dictated Date/Time: 05/31/2017 6:49 PM
[2017-05-31 19:11] LABS: BASO % 0.2 %; BASO ABS # 0.01 K/uL (0-0.2); COMPLETE YES; EOS % 3.3 %; HEMATOCRIT 35.9 % (37-47); IG% 0.2 %; LYMPH % 27.4 %; LYMPH ABS # 1.15 K/uL (1.2-3.4); MEAN CELL VOLUME 88.9 fL (80-100); MEAN CORPUSCULAR HEMOGLOBIN 30.9 pg (25-34); MEAN CORPUSCULAR HGB CONC 34.8 g/dl (32-36); MEAN PLATELET VOLUME 10.7 fL (7.4-10.4); MONO % 4.8 %; NEUT % 64.1 %; PLATELET COUNT 152 K/uL (130-400); RED BLOOD COUNT 4.04 M/uL (4.2-5.4)
[2017-05-31] MEDS ORDERED: OXYCODONE IR HOME PACK PO ONE (19:30)
[2017-05-31] MEDS ORDERED: ONDANSETRON HOME PACK 4MG OD TAB PO ONE (19:30)
[2017-05-31 19:38] VITALS: BP 129/75; PULSE 75; O2SAT 98
== END 2017-05-31 20:01 | disposition home or self-care (01) ==
LOC: C.EDB 16:48 → C.EDC 20:01
DX: R10.31 Right lower quadrant pain (principal); R11.2 Nausea with vomiting, unspecified; E28.2 Polycystic ovarian syndrome; J45.909 Unspecified asthma, uncomplicated; Z90.49 Acquired absence of other specified parts of digestive tract

== ENCOUNTER 2017-12-26 12:53 | Emergency (ER) | payer BC, OTHER ==
[~2017-12-26] VITALS: Ht 175.3 cm; Wt 143.7 kg
[2017-12-26 13:01] VITALS: TEMP 37; Ht 175.3 cm; Wt 143.7 kg
[2017-12-26] MEDS ORDERED: SODIUM CHLORIDE 0.9% 1000ML 1,000 ML IV STA (13:09)
[2017-12-26 13:38] LABS: BASO % 0.3 %; BASO ABS # 0.02 K/uL (0-0.2); EOS % 1.3 %; HEMATOCRIT 39.9 % (37-47); HEMOGLOBIN 13.7 g/dL (12.0-16.0); IG# 0.02 K/uL (0.00-0.02); LYMPH % 20.7 %; LYMPH ABS # 1.56 K/uL (1.2-3.4); MEAN CELL VOLUME 86.2 fL (80-100); MEAN CORPUSCULAR HEMOGLOBIN 29.6 pg (25-34); MEAN CORPUSCULAR HGB CONC 34.3 g/dl (32-36); MEAN PLATELET VOLUME 10.7 fL (7.4-10.4); MONO % 7.3 %; MONO ABS # 0.55 K/uL (0.11-0.59); NEUT % 70.1 %; NEUT ABS # 5.28 K/uL (1.4-6.5); PLATELET COUNT 220 K/uL (130-400); RED CELL DISTRIBUTION WIDTH CV 12.7 % (11.5-14.5); WHITE BLOOD COUNT 7.53 K/uL (4.8-10.8)
[2017-12-26 13:54] LABS: ALBUMIN 3.6 gm/dl (3.4-5.0); ALT/SGPT 25 U/L (12-78); BLOOD UREA NITROGEN 11 mg/dl (7-18); CALCIUM 9.3 mg/dl (8.5-10.1); CARBON DIOXIDE 28 mmol/L (21-32); CREATININE 1.12 mg/dl (0.60-1.20); GLUCOSE 92 mg/dl (70-99); LIPASE 153 U/L (73-393); POTASSIUM 3.6 mmol/L (3.5-5.1); SODIUM 140 mmol/L (136-145)
[2017-12-26 13:57] LABS: ALKALINE PHOSPHATASE 88 U/L (45-117); AST/SGOT 16 U/L (15-37); TOTAL PROTEIN 7.5 gm/dl (6.4-8.2)
[2017-12-26 14:55] VITALS: BP 117/65; PULSE 83; O2SAT 100
--- NOTE | 2017-12-26 17:13 | EMERGENCY ROOM VISIT NOTE ---
History Report prepared by Shanti: Elsy Stewart Under the Supervision of: Dr. Reynaldo Garcia D.O. First contact with patient: 13:02 Chief Complaint: HYPOGLYCEMIA Stated Complaint: BLOOD SUGAR KEEPS DROPPING, CELIS RT SIDE History of Present Illness The patient is a 27 year old female who presents to the Emergency Room with complaints of intermittent nausea and lightheadedness beginning two weeks ago. The patient reports her blood sugar keeps dropping. She states her blood sugar level is typically in the 150s but she reports she has been unable to get it over 98. The patient was seen in [facility] on Friday for the same symptoms. While there, she has a UA and which was negative. The patient reports a mild right sided headache, and intermittent hot flashes. She had an episode of vomiting this morning. She states she has been taking her blood sugar every time she get an episode of nausea. The patient used to take Metformin but reports she hasn't taken it in about a month. She reports the lowest her blood sugar has been over the past two weeks was 63. Pt denies headache, change in vision, fevers, chest pain, shortness of breath, diarrhea, pain with urination, and melena. Source of History: patient Onset: two weeks ago Position: other (generalized) Quality: other (nausea and lightheadedness) Timing: intermittent Associated Symptoms: + headache, + diaphoresis, + nausea, + vomiting, No chest pain, No SOB, No diarrhea, No urinary symptoms Review of Systems See HPI for pertinent positives & negatives. A total of 10 systems reviewed and were otherwise negative. Past Medical & Surgical Medical Problems: (1) Asthma, Unspecified (2) CAP (community acquired pneumonia) (3) CAP (community acquired pneumonia) (4) Cholelithiasis without obstruction (5) PCOS (polycystic ovarian syndrome) (6) Pre-diabetes (7) premature rupture of membranes in third trimester (8) URIC ACID NEPHROLITHIAS Surgical Problems: (1) History of cholecystectomy (2) History of wisdom tooth extraction Family History Diabetes mellitus FH: cancer FH: diabetes mellitus FH: gallbladder disease FH: heart disease FH: hypertension FH: kidney disease FH: lung disease Social History Smoking Status: Never Smoker Alcohol Use: occasionally Drug Use: none Marital Status: in relationship Housing Status: lives with family Occupation Status: employed Current/Historical Medications No Active Prescriptions or Reported Meds Allergies Coded Allergies: Amoxicillin (Verified Allergy, Severe, ELAVATED BP/PASSED OUT, 12/26/17) Levofloxacin (Verified Allergy, Intermediate, Rash, 12/26/17) Ampicillin (Verified Allergy, Mild, RASH, 12/26/17) noted 12/03/15 Sulbactam (Verified Allergy, Mild, RASH, 12/26/17) noted 12/03/15 Flu Virus Vaccine (Verified Allergy, Unknown, Unknown, 05/31/17) Peanut (Verified Allergy, Unknown, ., 12/26/17) Physical Exam Vital Signs Date Time Temp Pulse Resp B/P (MAP) Pulse Ox O2 Delivery O2 Flow Rate FiO2 12/26/17 14:55 83 18 117/65 100 Room Air 12/26/17 13:01 37.0 89 20 136/97 99 Room Air Physical Exam GENERAL: Sitting up in bed, alert, well appearing, well nourished, no distress, non-toxic EYE EXAM: normal conjunctiva. PERRL and EOM's grossly intact. OROPHARYNX: no exudate, no erythema, lips, buccal mucosa, and tongue normal and mucous membranes are moist NECK: supple, no nuchal rigidity, no adenopathy, non-tender LUNGS: Clear to auscultation. Normal chest wall mechanics HEART: no murmurs, S1 normal and S2 normal ABDOMEN: abdomen soft, non-tender, normo-active bowel sounds, no masses, no rebound or guarding. SKIN: no rashes and no bruising UPPER EXTREMITIES: upper extremities are grossly normal. LOWER EXTREMITIES: No pitting edema. NEURO EXAM: Normal sensorium, cranial nerves II-XII intact, normal speech, no weakness of arms, no weakness of legs. No drift. Finger to nose intact. Sensation intact. Medical Decision & Procedures Laboratory Results 12/26/17 13:20 Red Blood Count 4.63, Mean Corpuscular Volume 86.2, Mean Corpuscular Hemoglobin 29.6, Mean Corpuscular Hemoglobin Concent 34.3, Mean Platelet Volume 10.7, Neutrophils (%) (Auto) 70.1, Lymphocytes (%) (Auto) 20.7, Monocytes (%) (Auto) 7.3, Eosinophils (%) (Auto) 1.3, Basophils (%) (Auto) 0.3, Neutrophils # (Auto) 5.28, Lymphocytes # (Auto) 1.56, Monocytes # (Auto) 0.55, Eosinophils # (Auto) 0.10, Basophils # (Auto) 0.02 12/26/17 13:20 Test 12/26/17 13:20 White Blood Count 7.53 K/uL (4.8-10.8) Red Blood Count 4.63 M/uL (4.2-5.4) Hemoglobin 13.7 g/dL (12.0-16.0) Hematocrit 39.9 % (37-47) Mean Corpuscular Volume 86.2 fL (80-100) Mean Corpuscular Hemoglobin 29.6 pg (25-34) Mean Corpuscular Hemoglobin Concent 34.3 g/dl (32-36) Platelet Count 220 K/uL (130-400) Mean Platelet Volume 10.7 fL (7.4-10.4) Neutrophils (%) (Auto) 70.1 % Lymphocytes (%) (Auto) 20.7 % Monocytes (%) (Auto) 7.3 % Eosinophils (%) (Auto) 1.3 % Basophils (%) (Auto) 0.3 % Neutrophils # (Auto) 5.28 K/uL (1.4-6.5) Lymphocytes # (Auto) 1.56 K/uL (1.2-3.4) Monocytes # (Auto) 0.55 K/uL (0.11-0.59) Eosinophils # (Auto) 0.10 K/uL (0-0.5) Basophils # (Auto) 0.02 K/uL (0-0.2) RDW Standard Deviation 40.0 fL (36.4-46.3) RDW Coefficient of Variation 12.7 % (11.5-14.5) Immature Granulocyte % (Auto) 0.3 % Immature Granulocyte # (Auto) 0.02 K/uL (0.00-0.02) Urine Color YELLOW Urine Appearance CLEAR (CLEAR) Urine pH 5.0 (4.5-7.5) Urine Specific [place] 1.007 (1.000-1.030) Urine Protein 1+ (NEG) Urine Glucose (UA) NEG (NEG) Urine Ketones NEG (NEG) Urine Occult Blood 3+ (NEG) Urine Nitrite NEG (NEG) Urine Bilirubin NEG (NEG) Urine Urobilinogen NEG (NEG) Urine Leukocyte Esterase NEG (NEG) Urine WBC (Auto) 1-5 /hpf (0-5) Urine RBC (Auto) 0-4 /hpf (0-4) Urine Hyaline Casts (Auto) 0 /lpf (0-5) Urine Epithelial Cells (Auto) >30 /lpf (0-5) Urine Bacteria (Auto) NEG (NEG) Urine Test NEG (NEG) Anion Gap 7.0 mmol/L (3-11) Est Creatinine Clear Calc Drug Dose 117.8 ml/min Estimated GFR () 79.1 Estimated GFR (Non- 68.2 BUN/Creatinine Ratio 9.8 (10-20) Calcium Level 9.3 mg/dl (8.5-10.1) Total Bilirubin 0.4 mg/dl (0.2-1) Direct Bilirubin < 0.1 mg/dl (0-0.2) Aspartate Amino Transf (AST/SGOT) 16 U/L (15-37) Alanine Aminotransferase (ALT/SGPT) 25 U/L (12-78) Alkaline Phosphatase 88 U/L (45-117) Total Protein 7.5 gm/dl (6.4-8.2) Albumin 3.6 gm/dl (3.4-5.0) Lipase 153 U/L (73-393) Laboratory results per my review. Medications Administered Medications (Trade) Dose Ordered Sig/Daniel Route Start Time Stop Time Status Last Admin Dose Admin Sodium Chloride 1,000 ml @ 999 mls/hr Q1H1M STAT IV 12/26/17 13:09 12/26/17 14:09 DC 12/26/17 13:40 999 MLS/HR ED Course ED COURSE: Vital signs were reviewed and showed normal. The patients medical record was reviewed The above diagnostic studies were performed and reviewed. ED treatments and interventions as stated above. 1303: The patient was evaluated in room A4B. A complete history and physical examination was performed. 1309: Ordered Sodium Chloride 1000 ml @ 999 mls/hr IV. 1506: I updated the patient on her test results. She is feeling better. 1515: Upon reevaluation, the patient is resting comfortably.I discussed my findings with the patient and she understands and agrees with the treatment plan. Based on the patients age, coexisting illnesses, exam and lab findings the decision to treat as an outpatient was made. The patient remained stable while under my care. The patient appeared well at the time of discharge. Medical Decision Differential Diagnosis includes but is not limited to dehydration, stroke, anemia, hypoglycemia, hyponatremia, hypernatremia, urinary tract infection, pneumonia, bronchitis, sepsis, gastroenteritis, additional abdominal pathology, metabolic abnormalities and infections. Patient is a 27-year-old female who is a diabetic on metformin and no other oral or insulins that presents to ER for intermittent episodes over the past 2 weeks of feeling lightheaded associated with nausea. She has no other complaints. CBC along with BMP, LFTs, bilirubin and lipase is unremarkable. UA was negative. was negative. Insulin was unremarkable. 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 Notes her sugars have been fairly consistently in the 90s to low 100s. She did have one blood sugar of 60. She has not been taking metformin for the past several weeks. I am truly uncertain of the cause of her symptoms. She has no other complaints. Her abdomen was completely benign. Update the patient at bedside. She is discharged follow-up with PCP as an outpatient. She was given a bolus of IV fluids. Discussed with Pt concerning signs and symptoms to watch out for. Pt was instructed to follow up with their PCP and discussed with the patient their option to return to the ED at anytime for persistent or worsening symptoms. The appropriate anticipatory guidance and out-patient management, including indications for return to the emergency department, were explained at length to the patient and understood. Medication Reconcilliation Current Medication List: was personally reviewed by me Blood Pressure Screening Patient's blood pressure: Normal blood pressure Impression Primary Impression: Hypoglycemia Scribe Attestation The scribe's documentation has been prepared under my direction and personally reviewed by me in its entirety. I confirm that the note above accurately reflects all work, treatment, procedures, and medical decision making performed by me. Departure Information Dispostion Home / Self-Care Prescriptions No Active Prescriptions or Reported Meds Referrals Wilmer Power D.O. (PCP) Forms HOME CARE DOCUMENTATION FORM, IMPORTANT VISIT INFORMATION, WORK / SCHOOL INSTRUCTIONS Patient Instructions ED Diabetes Hypoglycemia Oral Agent, Hypoglycemia Steps, [facility] Additional Instructions Please follow up with your primary care doctor with in the next 24 hours. Any worsening of your symptoms, please return to the ED immediately. This includes any fevers greater than 100.4, worsening pain, chest pain, shortness breath, persistent nausea, vomiting, unable to eat or drink, or any other concerning signs or symptoms from your standpoint. Please try to eat meals which are smaller and more spaced out; more frequently.
== END 2017-12-26 15:18 | disposition home or self-care (01) ==
LOC: C.EDB 12:55 → C.EDA 15:18
DX: E16.2 Hypoglycemia, unspecified (principal); J45.909 Unspecified asthma, uncomplicated; E28.2 Polycystic ovarian syndrome; Z90.49 Acquired absence of other specified parts of digestive tract; Z83.3 Family history of diabetes mellitus; Z80.9 Family history of malignant neoplasm, unspecified; Z82.49 Family history of ischemic heart disease and other diseases of the circulatory system; Z84.1 Family history of disorders of kidney and ureter; Z88.0 Allergy status to penicillin; Z88.1 Allergy status to other antibiotic agents; Z88.7 Allergy status to serum and vaccine; Z91.010 Allergy to peanuts

== ENCOUNTER 2025-06-22 02:00 | Observation (INO) ==
[2025-06-22 02:47] LABS: Hematocrit (blood only) 41.8 % (37.0-47.0); Hemoglobin 14.5 g/dl (12.0-16.0); Immature Granulocytes # (auto) 0.06 K/uL (0.01-0.20); Immature Granulocytes % (auto) 0.5 %; Mean Corpuscular Hemoglobin 29.2 pg (25.0-34.0); Mean Corpuscular Volume 84.3 fL (80.0-100.0); Platelet Count 166 K/uL (130-400); RDW Standard Deviation 37.1 fL (36.4-46.3); Red Blood Count 4.96 M/uL (4.20-5.40); White Blood Count 11.42 K/ul (4.8-10.8)
--- NOTE | 2025-06-22 02:50 | Emergency Department Note ---
Impression & Plan Acute saddle pulmonary embolism, Pulmonary embolism ED Provider Note NAME: ZENY MEJÍA AGE: 35 SEX: F : 1990 ARRIVES VIA: Walk-In INFORMANT: Patient, ED PROVIDER(S): Francisco J Pan MD CHIEF COMPLAINT: Shortness of breath HPI: This is a 35-year-old female presenting for shortness of breath. Patient states for the past 1 week she has had shortness of breath. She saw her telehealth provider who thought this was related to asthma/allergies. She was given albuterol treatments and steroids which she completed. She does not feel any better. She notes no chest pain, pleurisy. She does report chest tightness however. She previously was seen for a left calf swelling and pain for which she had a negative ultrasound at an outside hospital. She states this pain resolved and was also almost 3+ weeks ago. She has had no specific cough, nausea, vomiting, abdominal pain, back pain. She does report some slight sinus congestion otherwise. ROS: See above HPI for pertinent positives & negatives. A total of 10 systems reviewed and were otherwise negative. PAST MEDICAL HISTORY: See Below PAST SURGICAL HISTORY: See Below FAMILY HISTORY: See Below SOCIAL HISTORY: See Below HOME MEDICATIONS: See Below ALLERGIES: See Below VITALS: See Below PHYSICAL EXAMINATION: General: resting comfortably in no acute distress Head: Normocephalic and atraumatic Eyes: Normal inspection, extraocular muscles intact Ear, nose, throat: Normal external exam Neck: Normal range of motion Respiratory: lungs clear to auscultation bilaterally Cardiovascular: Regular rate/rhythm, no murmur GI: soft, nontender, no guarding or rebound Extremities: nontender, moves all extremities Neuro: The patient awake and alert, appropriately conversive, no focal deficits, symmetric faces Skin: Warm, dry, and intact MEDICAL DECISION MAKING: This is a 35-year-old female present for shortness of breath. - Patient has had multiple days of dyspnea. Will do screening blood work, troponin and D-dimer. Will do chest x-ray. - Vital signs reviewed reassuring, no sustained tachycardia or hypoxia. Not tachypneic. Normotensive - Bloodwork is reviewed showing no significant leukocytosis, anemia, electrolyte or creatinine abnormality. Negative troponin - D-dimer does result at almost 9000 - CTA of the chest ordered due to elevated D-dimer, independently interpretation by myself does reveal large pulmonary emboli, saddle embolus - Patient troponin is negative and patient still has no chest pain, hypoxia or vital sign disturbance. - Will start patient on heparin drip with bolus Differential diagnosis: Pneumonia, PE, dissection, pneumothorax Diagnostics interpreted by me: ECG: ECG independently interpreted by me with normal sinus rhythm, rate of 97, normal [place], normal QRS, normal QTc, no ST segment elevations consistent with STEMI criteria Cardiac Monitoring: An order was placed for continuous cardiac monitoring. The monitor shows a rate of 92 with sinus rhythm. Critical Care Note: I have personally spent 42 minutes of critical care time in the direct management of this patient. This includes bedside care, interpretation of diagnostic studies, and testing, discussion with consultants, patient, and family members, and other required patient management activities. This 42 minutes is in excess of all separately billable procedures. Past Med/Surg History Problem List (Updated 06/22/25 @ 06:25 by Francisco J Pan MD) Pulmonary embolism (Acute) Acute saddle pulmonary embolism (Acute) Pulmonary emboli PCOS (polycystic ovarian syndrome) (Chronic) Back pain (Acute) Lumbar strain (Acute) Back pain (Acute) Lightheadedness (Acute) Shortness of breath (Acute) Asthma (Acute) SOB (shortness of breath) (Acute) Pre-diabetes (Chronic) Abdominal pain (Acute) Abdominal pain affecting (Acute) Acute pharyngitis (Acute) Acute tonsillitis (Acute) Allergic drug rash (Acute) Asymptomatic bacteriuria (Acute) CAP (community acquired pneumonia) CAP (community acquired pneumonia) Dehydration (Acute) Elevated BP without diagnosis of hypertension (Acute) Fever (Acute) Heart palpitations (Acute) Hypoglycemia (Acute) Intrauterine (Acute) premature rupture of membranes in third trimester Sinusitis (Acute) Syncope (Acute) Vomiting (Acute) Medical History Asthma PCOS (polycystic ovarian syndrome) Diabetes Cholecystitis Pneumonia Social History Smoking Status: Never smoker Preferred Language: Mongolian Communication Ability: Effective Visual Impairment: No Limitations Hearing Ability: Normal current occupational status: employed Feels Safe at Home: Yes Allergies Allergies Allergy/AdvReac Type Severity Reaction Status Date / Time levofloxacin Allergy Intermediate Rash Verified 05/19/18 06:08 ampicillin Allergy Mild RASH Verified 05/19/18 06:08 sulbactam Allergy Mild RASH Verified 05/19/18 06:08 Influenza Virus Vaccines Allergy Unknown Unknown Verified 06/22/25 04:30 peanut Allergy Unknown . Verified 05/19/18 06:08 ferrous fumarate Allergy Hypertensio Unverified 09/24/18 20:08 [From 1 + Iron] n folic acid Allergy Hypertensio Unverified 09/24/18 20:08 [From 1 + Iron] n vit,tx Allergy Hypertensio Unverified 09/24/18 20:08 calc,iron,folic acd(less thn n 1 mg) [From 1 + Iron] vitamins with Allergy Hypertensio Unverified 09/24/18 20:08 calcium n [From 1 + Iron] Home Meds Home Medications Medication Instructions Recorded Confirmed albuterol sulfate 90 mcg/actuation 1 inhalation 06/22/25 aerosol inhaler (Ventolin HFA) atorvastatin 20 mg tablet mg 06/22/25 drospirenone 3 mg-ethinyl 1 tab PO DAILY 06/22/25 06/22/25 estradiol 0.03 mg tablet (Zumandimine (28)) empagliflozin 25 mg tablet mg 06/22/25 (Jardiance) tirzepatide 2.5 mg/0.5 mL mg subcut 06/22/25 subcutaneous pen injector (Mounjaro) Results & Data (ED) Vital Signs Vital Signs - 24 hr 06/22/25 02:04 06/22/25 02:28 06/22/25 02:31 Temperature 36.5 C Temperature Source Temporal Artery Scan Pulse Rate 104 H 96 H Pulse Rate [Apical] Respiratory Rate 18 Respiratory Effort / Characteristics Non-Labored Spontaneous Respiratory Depth Normal Blood Pressure 140/88 Blood Pressure [Right Arm] Blood Pressure Mean 105 Blood Pressure Mean [Right Arm] Blood Pressure Position Sitting Pulse Oximetry 96 95 Oxygen Delivery Method Room Air Room Air Sepsis Recent Fever Within 48 Hours No Sepsis New/Unexplained Change in Mental Status N/A Sepsis Action Taken by Nursing No Action Required 06/22/25 02:32 06/22/25 03:00 Temperature Temperature Source Pulse Rate Pulse Rate [Apical] 95 H Respiratory Rate 20 Respiratory Effort / Characteristics Respiratory Depth Blood Pressure Blood Pressure [Right Arm] 125/91 Blood Pressure Mean Blood Pressure Mean [Right Arm] 102 Blood Pressure Position Pulse Oximetry 94 95 Oxygen Delivery Method Room Air Room Air Sepsis Recent Fever Within 48 Hours Sepsis New/Unexplained Change in Mental Status Sepsis Action Taken by Nursing Laboratory Data 06/22/25 02:23 06/22/25 02:23 Lab Results 06/22/25 06/22/25 06/22/25 Range/Units 02:23 02:23 02:25 WBC 11.42 H (4.8-10.8) K/ul RBC 4.96 (4.20-5.40) M/uL Hgb 14.5 (12.0-16.0) g/dl Hct 41.8 (37.0-47.0) % MCV 84.3 (80.0-100.0) fL MCH 29.2 (25.0-34.0) pg MCHC 34.7 (32.0-36.0) g/dL RDW Std Deviation 37.1 (36.4-46.3) fL RDW Coeff of Michael 12.4 (11.5-14.5) % Plt Count 166 (130-400) K/uL MPV 10.9 (9.4-12.4) fL Immature Gran % (Auto) 0.5 % Neut % (Auto) 58.2 % Lymph % (Auto) 34.2 % [place] % (Auto) 5.0 % Eos % (Auto) 1.6 % Baso % (Auto) 0.5 % Neut # (Auto) 6.64 H (1.40-6.50) K/uL Lymph # (Auto) 3.91 H (1.20-3.40) K/uL [place] # (Auto) 0.57 (0.11-0.59) K/uL Eos # (Auto) 0.18 (0.00-0.50) K/uL Baso # (Auto) 0.06 (0.00-0.20) K/uL Immature Gran # (Auto) 0.06 (0.01-0.20) K/uL PT 10.1 (9.0-12.0) Seconds INR 0.9 (0.9-1.1) APTT 25 (21-31) Seconds PTT Ratio 0.9 D-Dimer 8960 H* (0-500) ug/L FEU Sodium 140 (136-145) mmol/L Potassium 3.6 (3.5-5.1) mmol/L Chloride 110 H (98-107) mmol/L Carbon Dioxide 23 (21-32) mmol/L Anion Gap 7 (3-11) BUN 24 H (6-23) mg/dl Creatinine 1.15 (0.6-1.2) mg/dl Est Cr Clr Drug Dosing 100.7 ml/min eGFR 64.51 BUN/Creatinine Ratio 20.9 H (10-20) Glucose 208 H (70-99(Fasting)) mg/dl Calcium 8.6 (8.6-10.3) mg/dl Total Bilirubin 0.3 (0.2-1.0) mg/dl AST 9 L (13-39) U/L ALT 10 (7-52) U/L Alkaline Phosphatase 56 (34-104) U/L Troponin I High Sens 8.4 Cancelled (0-14) pg/ml Total Protein 6.2 (6.0-8.3) gm/dl Albumin 3.6 (3.4-5.0) gm/dl Globulin 2.6 (2.5-4.0) gm/dl Albumin/Globulin Ratio 1.4 (0.9-2) SARS-CoV-2 (PCR) NEGATIVE (Negative) Influenza Type A (PCR) Negative (Neg) Influenza Type B (PCR) Negative (Neg) RSV (RT-PCR) Negative (Neg) Administered Medications Heparin Sodium/Dextrose (Heparin 00803 Unit/500 Ml D5w) 25,000 units in 500 mls @ 33 mls/hr IV .[id number] [facility]; Protocol Stop: 07/22/25 04:29 Last Admin: 06/22/25 04:45 Dose: 1,650 units/hr, 33 mls/hr Documented By: AN Co-signed By: trixie Discontinued Medications Heparin Sodium (Porcine) (Heparin Sod (Porcine) 1000 Unit/Ml) 1 units IV NOW ONE Stop: 06/22/25 04:29 Last Admin: 06/22/25 04:44 Dose: 7,000 units Documented By: AN Co-signed By: trixie Ioversol (Optiray 320 125ml) 125 ml IV ONCE ONE Stop: 06/22/25 04:14 Last Admin: 06/22/25 04:13 Dose: 118 ml Documented By: RICHY Imaging Data Radiologist's Impression: Chest X-Ray 06/22/25 02:08 EXAM: XR chest 1V portable CLINICAL HISTORY: Dyspnea TECHNIQUE: An X-ray image of the chest is obtained in AP projection. COMPARISON: 05/30/2017, CR Chest FINDINGS: Pulmonary Parenchyma: Chest leads are identified. No evidence of consolidation, collapse, or focal opacities. No pulmonary nodules are identified. No evidence of pleural effusion or pleural thickening. Prominent both gurpreet are identified Heart and Mediastinum: Heart size and shape are normal. No mediastinal widening or masses. No mediastinal lymphadenopathy. Bony Thorax: Bony thorax appears intact without fractures or deformities. Soft Tissues: Soft tissues overlying the chest wall are unremarkable. IMPRESSION: No evidence of consolidation/collapse. No pleural effusion is identified bilaterally. Prominent both gurpreet, interval new, likely due to overlapping of hilar vessels/ lymph nodes. No other significant interval change is seen Electronically signed by Tony Wilson 06-22-2025 03:32 AM Chest CTA 06/22/25 03:45 EXAM: CT angio chest PE protocol CLINICAL HISTORY: PE TECHNIQUE: Contiguous axial images were obtained from the neck base through the upper abdomen following intravenous administration of iodinated contrast material. Angiographic images were processed, 3D MIP images were acquired for interpretation. If IV contrast material had not been administered, the likelihood of detecting abnormalities relevant to the patient's condition would have been substantially decreased. Coronal and sagittal 3-D MIPs were likewise performed and indicated to increase the sensitivity of detectin diffuse clinically relevant pathology. CT scan was performed according to ALARA (as low as reasonable achievable). COMPARISON: None. FINDINGS: Evidence of intraluminal hypodense filling defects are noted involving pulmonary trunk bifurcation and bilateral main pulmonary artery ( saddle thromboembolism), extending into the right upper, mid and lower lobar artery and left lower lobar artery - suggestive of thromboembolism Diffuse ground-glass haze with multiple area of air trapping are noted involving both lungs giving mosaic attenuation. The central airways are patent. No pleural effusion. The heart, aorta, and pulmonary arteries are of normal size and configuration. There are no appreciable coronary artery and aortic atherosclerotic calcifications. No pericardial effusion is identified. The thyroid is unremarkable. No mediastinal, hilar, or axillary lymphadenopathy is noted. No suspicious lytic or sclerotic osseous lesions are identified. IMPRESSION: Extensive pulmonary thromboembolism as described. Diffuse ground-glass haze with multiple area of air trapping are noted involving both lungs giving mosaic attenuation. Electronically signed by Timmy Berman 06-22-2025 04:45 AM Discharge Plan Visit Data Chief Complaint: Shortness of Breath/Dyspnea Stated Complaint: SOB ED Provider: Francisco J Pan Discharge Problem: Acute saddle pulmonary embolism, Pulmonary embolism Patient Disposition: Admitted As Inpatient Condition: Serious Discharge Instructions Interventions: ED Discharge Assessment Last Done: 06/22/25 05:59 Discharge Problem: Acute saddle pulmonary embolism Qualifiers: Acute cor pulmonale presence: without acute cor pulmonale Qualified Code(s): I 26.92 - Saddle embolus of pulmonary artery without acute cor pulmonale
[2025-06-22 03:05] LABS: Alanine Aminotransferase 10.0 U/L (7-52); Albumin Globulin Ratio 1.4 (0.9-2); Alkaline Phosphatase 56.0 U/L (34-104); Anion Gap 7.0 (3-11); Bilirubin,Total 0.3 mg/dl (0.2-1.0); Blood Urea Nitrogen 24.0 mg/dl (6-23); Calcium 8.6 mg/dl (8.6-10.3); Carbon Dioxide 23.0 mmol/L (21-32); Chloride 110.0 mmol/L (98-107); Creatinine Clr Calc Pharmacy 100.7 ml/min; Globulin 2.6 gm/dl (2.5-4.0); Glucose 208.0 mg/dl (70-99(Fasting)); Potassium 3.6 mmol/L (3.5-5.1); Sodium 140.0 mmol/L (136-145); Total Protein 6.2 gm/dl (6.0-8.3)
[2025-06-22 03:29] LABS: Influenza A virus by PCR Negative (Neg); Influenza B virus by PCR Negative (Neg); SARS CoV2 RNA(COVID-19) Ceph NEGATIVE (Negative)
--- NOTE | 2025-06-22 03:33 | XRay Report ---
EXAM: XR chest 1V portable CLINICAL HISTORY: Dyspnea TECHNIQUE: An X-ray image of the chest is obtained in AP projection. COMPARISON: 05/30/2017, CR Chest FINDINGS: Pulmonary Parenchyma: Chest leads are identified. No evidence of consolidation, collapse, or focal opacities. No pulmonary nodules are identified. No evidence of pleural effusion or pleural thickening. Prominent both gurpreet are identified Heart and Mediastinum: Heart size and shape are normal. No mediastinal widening or masses. No mediastinal lymphadenopathy. Bony Thorax: Bony thorax appears intact without fractures or deformities. Soft Tissues: Soft tissues overlying the chest wall are unremarkable. IMPRESSION: No evidence of consolidation/collapse. No pleural effusion is identified bilaterally. Prominent both gurpreet, interval new, likely due to overlapping of hilar vessels/ lymph nodes. No other significant interval change is seen Electronically signed by Tony Wilson 06-22-2025 03:32 AM
[2025-06-22] MEDS: OPTIRAY 320 125ml IV ONE (04:13)
[2025-06-22] MEDS ORDERED: Heparin IV Adult Wt-Based Standard w/ INITIAL Bolus Protocol IV STA (04:13)
[2025-06-22 04:34] LABS: INR 0.9 (0.9-1.1); Partial Thromboplastin Time 25 Seconds (21-31); Prothrombin Time 10.1 Seconds (9.0-12.0)
[2025-06-22] MEDS: HEPARIN SOD (PORCINE) 1000 UNIT/ML IV ONE (04:44)
[2025-06-22] MEDS: HEPARIN 25000 UNIT/500 ML D5W 25,000 UNITS/500 ML BAG IV SCH (04:45)
--- NOTE | 2025-06-22 04:45 | CT Scan Report ---
EXAM: CT angio chest PE protocol CLINICAL HISTORY: PE TECHNIQUE: Contiguous axial images were obtained from the neck base through the upper abdomen following intravenous administration of iodinated contrast material. Angiographic images were processed, 3D MIP images were acquired for interpretation. If IV contrast material had not been administered, the likelihood of detecting abnormalities relevant to the patient's condition would have been substantially decreased. Coronal and sagittal 3-D MIPs were likewise performed and indicated to increase the sensitivity of detectin diffuse clinically relevant pathology. CT scan was performed according to ALARA (as low as reasonable achievable). COMPARISON: None. FINDINGS: Evidence of intraluminal hypodense filling defects are noted involving pulmonary trunk bifurcation and bilateral main pulmonary artery ( saddle thromboembolism), extending into the right upper, mid and lower lobar artery and left lower lobar artery - suggestive of thromboembolism Diffuse ground-glass haze with multiple area of air trapping are noted involving both lungs giving mosaic attenuation. The central airways are patent. No pleural effusion. The heart, aorta, and pulmonary arteries are of normal size and configuration. There are no appreciable coronary artery and aortic atherosclerotic calcifications. No pericardial effusion is identified. The thyroid is unremarkable. No mediastinal, hilar, or axillary lymphadenopathy is noted. No suspicious lytic or sclerotic osseous lesions are identified. IMPRESSION: Extensive pulmonary thromboembolism as described. Diffuse ground-glass haze with multiple area of air trapping are noted involving both lungs giving mosaic attenuation. Electronically signed by Timmy Berman 06-22-2025 04:45 AM
--- NOTE | 2025-06-22 04:51 | History & Physical Report ---
Date of Service June 22, 2025 Assessment & Plan (1) Pulmonary emboli: (2) Asthma: (3) Diabetes: Plan 35yo female with history of PCOS on OCPS, Asthma and pre-DM presenting with SOB/ROACH - patient found with markedly elevated Ddimer on 8960 with CTA revealing extensive pulmonary emboli with diffuse ground-glass haze. Patient with mild tachycardia. BP is stable. No respiratory distress. Adequate oxygenation on room air. PESI Score=33 - Very low risk. Shock index=0.7, not suggestive of occult shock. Suspect patient had a LLE DVT when she had the pain and cramping in her calf. Suspect provoked PE - patient with long car ride, OCP use. #Pulmonary Emboli -Heparin gtt --> NOAC in AM -Check 2D echo -Patient is on estrogen containing OCPs at present to help control her hormonal symptoms of PCOS. Recommend discontinuing OCPS given presence of VTE. Patient should use alternative contraception if needed -Tylenol PRN pain - patient denies pain at this time #Asthma - no cough, SOB or wheeze -Albuterol PRN #Diabetes -CC diet -Continue Jardiance #Hyperlipidemia -Continue Atorvastatin History of Present Illness Chief Complaint: shortness of breath Primary Care Provider: DO Jennifer Juareskam is a pleasant 35yo female with history of Asthma, PCOS on OCPs and insulin resistance presenting from home with shortness of breath. Patient with no prior history of VTE. She does think that her maternal grandmother had blood clots in the past. On May 16 patient was in [place]. She had a long [address] home[address] They did stop and walk around. On 05/24/25 she developed severe pain and swelling in her left calf. She was seen at Urgent Care and had some blood work and a LLE doppler which was NEGATIVE for DVT at that time. On 06/16 patient woke up with some shortness of breath. She called her health line at work and was prescribed Prednisone x 5 days and Azithromycin for suspected allergy/asthma exacerbation. She has been using her home PRN Albuterol inhaler with no improvement in symptoms. This evening she was at work and her shortness of breath worsened. She reports she was having difficulty walking on the flat surfaces in her office which prompted her to come to the ER. In the ER she is afebrile, tachycardic, adequate oxygenation on room air. ER Course: Heparin gtt Allergies Allergy/AdvReac Type Severity Reaction Status Date / Time levofloxacin Allergy Intermediate Rash Verified 05/19/18 06:08 ampicillin Allergy Mild RASH Verified 05/19/18 06:08 sulbactam Allergy Mild RASH Verified 05/19/18 06:08 Influenza Virus Vaccines Allergy Unknown Unknown Verified 06/22/25 04:30 peanut Allergy Unknown . Verified 05/19/18 06:08 ferrous fumarate Allergy Hypertensio Unverified 09/24/18 20:08 [From 1 + Iron] n folic acid Allergy Hypertensio Unverified 09/24/18 20:08 [From 1 + Iron] n vit,tx Allergy Hypertensio Unverified 09/24/18 20:08 calc,iron,folic acd(less thn n 1 mg) [From 1 + Iron] vitamins with Allergy Hypertensio Unverified 09/24/18 20:08 calcium n [From 1 + Iron] Home Medications Medication Instructions Recorded Confirmed Type albuterol sulfate 90 mcg/actuation 1 inhalation 06/22/25 History aerosol inhaler (Ventolin HFA) atorvastatin 20 mg tablet mg 06/22/25 History drospirenone 3 mg-ethinyl 1 tab PO DAILY 06/22/25 06/22/25 History estradiol 0.03 mg tablet (Zumandimine (28)) empagliflozin 25 mg tablet mg 06/22/25 History (Jardiance) tirzepatide 2.5 mg/0.5 mL mg subcut 06/22/25 History subcutaneous pen injector (Mounjaro) Past Med/Surg History Problem List (Updated 06/22/25 @ 05:59 by Angelika Goss DO) Pulmonary emboli PCOS (polycystic ovarian syndrome) (Chronic) Back pain (Acute) Lumbar strain (Acute) Back pain (Acute) Lightheadedness (Acute) Shortness of breath (Acute) Asthma (Acute) SOB (shortness of breath) (Acute) Pre-diabetes (Chronic) Abdominal pain (Acute) Abdominal pain affecting (Acute) Acute pharyngitis (Acute) Acute tonsillitis (Acute) Allergic drug rash (Acute) Asymptomatic bacteriuria (Acute) CAP (community acquired pneumonia) CAP (community acquired pneumonia) Dehydration (Acute) Elevated BP without diagnosis of hypertension (Acute) Fever (Acute) Heart palpitations (Acute) Hypoglycemia (Acute) Intrauterine (Acute) premature rupture of membranes in third trimester Sinusitis (Acute) Syncope (Acute) Vomiting (Acute) Medical History Asthma PCOS (polycystic ovarian syndrome) Diabetes Cholecystitis Pneumonia Social History Smoking Status: Never smoker Preferred Language: Georgian Communication Ability: Effective Visual Impairment: No Limitations Hearing Ability: Normal current occupational status: employed Feels Safe at Home: Yes Review of Systems Review of Systems: All systems reviewed & are unremarkable except as noted in HPI & below Physical Exam Physical Exam: General: patient resting comfortably, NAD, non-toxic in appearance, AA&O x 4 Skin: warm, dry, intact, no rashes or lesions HEENT: NC/AT, PERRL, EOMI, anicteric sclera, conjunctiva without injection, external ear normal to inspection and nontender, nares patent, moist mucus membranes, dentition intact, no oropharyngeal lesions, neck supple, trachea midline, no LAD, no thyromegaly, no JVD Heart: +S1/S2, regular, tachycardic, no m/r/g Lungs: equal air entry bilaterally, no rales/rhonchi/wheezes Abd: +BS, soft, NT/ND, no masses/organomegaly/ascites Ext: warm, 2+ pulses in UE/LE bilaterally, no clubbing/cyanosis or edema Neuro: nonfocal, patient AA&O x 4, speech intact, no facial droop, moving all extremities on command with equal strength 5/5 Results & Data Results & Data Vital Signs (Past 12 Hours) Vital Signs Temp Pulse Pulse Resp BP BP Pulse Ox 06/22/25 03:00 95 H 20 125/91 95 06/22/25 02:32 94 06/22/25 02:31 95 06/22/25 02:28 96 H 06/22/25 02:04 36.5 C 104 H 18 140/88 96 O2 Del Method 06/22/25 03:00 Room Air 06/22/25 02:32 Room Air 06/22/25 02:31 Room Air 06/22/25 02:28 06/22/25 02:04 Room Air Laboratory Results Laboratory Results WBC 11.42 K/ul (4.8-10.8) H 06/22/25 02:23 RBC 4.96 M/uL (4.20-5.40) 06/22/25 02:23 Hgb 14.5 g/dl (12.0-16.0) 06/22/25 02:23 Hct 41.8 % (37.0-47.0) 06/22/25 02:23 MCV 84.3 fL (80.0-100.0) 06/22/25 02:23 MCH 29.2 pg (25.0-34.0) 06/22/25 02: MCHC 34.7 g/dL (32.0-36.0) 06/22/25 02: RDW Std Deviation 37.1 fL (36.4-46.3) 06/22/25 02: RDW Coeff of Michael 12.4 % (11.5-14.5) 06/22/25 02:23 Plt Count 166 K/uL (130-400) 06/22/25 02:23 MPV 10.9 fL (9.4-12.4) 06/22/25 02:23 Immature Gran % (Auto) 0.5 % 06/22/25 02:23 Neut % (Auto) 58.2 % 06/22/25 02:23 Lymph % (Auto) 34.2 % 06/22/25 02:23 Waldo % (Auto) 5.0 % 06/22/25 02:23 Eos % (Auto) 1.6 % 06/22/25 02:23 Baso % (Auto) 0.5 % 06/22/25 02:23 Neut # (Auto) 6.64 K/uL (1.40-6.50) H 06/22/25 02:23 Lymph # (Auto) 3.91 K/uL (1.20-3.40) H 06/22/25 02:23 Waldo # (Auto) 0.57 K/uL (0.11-0.59) 06/22/25 02:23 Eos # (Auto) 0.18 K/uL (0.00-0.50) 06/22/25 02:23 Baso # (Auto) 0.06 K/uL (0.00-0.20) 06/22/25 02:23 Immature Gran # (Auto) 0.06 K/uL (0.01-0.20) 06/22/25 02:23 PT 10.1 Seconds (9.0-12.0) 06/22/25 02:23 INR 0.9 (0.9-1.1) 06/22/25 02:23 APTT 25 Seconds (21-31) 06/22/25 02:23 PTT Ratio 0.9 06/22/25 02:23 D-Dimer 8960 ug/L FEU (0-500) H* 06/22/25 02:23 Sodium 140 mmol/L (136-145) 06/22/25 02:23 Potassium 3.6 mmol/L (3.5-5.1) 06/22/25 02:23 Chloride 110 mmol/L (98-107) H 06/22/25 02:23 Carbon Dioxide 23 mmol/L (21-32) 06/22/25 02:23 Anion Gap 7 (3-11) 06/22/25 02:23 BUN 24 mg/dl (6-23) H 06/22/25 02:23 Creatinine 1.15 mg/dl (0.6-1.2) 06/22/25 02:23 Est Cr Clr Drug Dosing 100.7 ml/min 06/22/25 02:23 eGFR 64.51 06/22/25 02:23 BUN/Creatinine Ratio 20.9 (10-20) H 06/22/25 02:23 Glucose 208 mg/dl (70-99(Fasting)) H 06/22/25 02:23 Calcium 8.6 mg/dl (8.6-10.3) 06/22/25 02:23 Total Bilirubin 0.3 mg/dl (0.2-1.0) 06/22/25 02:23 AST 9 U/L (13-39) L 06/22/25 02:23 ALT 10 U/L (7-52) 06/22/25 02:23 Alkaline Phosphatase 56 U/L (34-104) 06/22/25 02:23 Troponin I High Sens 8.4 pg/ml (0-14) 06/22/25 02:23 Troponin I High Sens Cancelled 06/22/25 02:23 Total Protein 6.2 gm/dl (6.0-8.3) 06/22/25 02:23 Albumin 3.6 gm/dl (3.4-5.0) 06/22/25 02:23 Globulin 2.6 gm/dl (2.5-4.0) 06/22/25 02:23 Albumin/Globulin Ratio 1.4 (0.9-2) 06/22/25 02:23 SARS-CoV-2 (PCR) NEGATIVE (Negative) 06/22/25 02:25 Influenza Type A (PCR) Negative (Neg) 06/22/25 02:25 Influenza Type B (PCR) Negative (Neg) 06/22/25 02:25 RSV (RT-PCR) Negative (Neg) 06/22/25 02:25 Impressions Chest X-Ray 06/22/25 02:08 EXAM: XR chest 1V portable CLINICAL HISTORY: Dyspnea TECHNIQUE: An X-ray image of the chest is obtained in AP projection. COMPARISON: 05/30/2017, CR Chest FINDINGS: Pulmonary Parenchyma: Chest leads are identified. No evidence of consolidation, collapse, or focal opacities. No pulmonary nodules are identified. No evidence of pleural effusion or pleural thickening. Prominent both gurpreet are identified Heart and Mediastinum: Heart size and shape are normal. No mediastinal widening or masses. No mediastinal lymphadenopathy. Bony Thorax: Bony thorax appears intact without fractures or deformities. Soft Tissues: Soft tissues overlying the chest wall are unremarkable. IMPRESSION: No evidence of consolidation/collapse. No pleural effusion is identified bilaterally. Prominent both gurpreet, interval new, likely due to overlapping of hilar vessels/ lymph nodes. No other significant interval change is seen Electronically signed by Tony Wilson 06-22-2025 03:32 AM Chest CTA 06/22/25 03:45 EXAM: CT angio chest PE protocol CLINICAL HISTORY: PE TECHNIQUE: Contiguous axial images were obtained from the neck base through the upper abdomen following intravenous administration of iodinated contrast material. Angiographic images were processed, 3D MIP images were acquired for interpretation. If IV contrast material had not been administered, the likelihood of detecting abnormalities relevant to the patient's condition would have been substantially decreased. Coronal and sagittal 3-D MIPs were likewise performed and indicated to increase the sensitivity of detectin diffuse clinically relevant pathology. CT scan was performed according to ALARA (as low as reasonable achievable). COMPARISON: None. FINDINGS: Evidence of intraluminal hypodense filling defects are noted involving pulmonary trunk bifurcation and bilateral main pulmonary artery ( saddle thromboembolism), extending into the right upper, mid and lower lobar artery and left lower lobar artery - suggestive of thromboembolism Diffuse ground-glass haze with multiple area of air trapping are noted involving both lungs giving mosaic attenuation. The central airways are patent. No pleural effusion. The heart, aorta, and pulmonary arteries are of normal size and configuration. There are no appreciable coronary artery and aortic atherosclerotic calcifications. No pericardial effusion is identified. The thyroid is unremarkable. No mediastinal, hilar, or axillary lymphadenopathy is noted. No suspicious lytic or sclerotic osseous lesions are identified. IMPRESSION: Extensive pulmonary thromboembolism as described. Diffuse ground-glass haze with multiple area of air trapping are noted involving both lungs giving mosaic attenuation. Electronically signed by Timmy Berman 06-22-2025 04:45 AM PG Care Time/CCT Total # of Minutes Spent Total Time Spent with Patient: Total time spent is greater than 50% in coordination of care (as documented) at patient's floor/unit and/or counseling patient: Coding Level of Care Code 51177 INT INP/OBS CARE 3/75MIN Diagnoses Pulmonary emboli I26.99 Asthma J45.909 Diabetes E11.9
[2025-06-22] MEDS ORDERED: ONDANSETRON INJ 2 MG/ML 2 ML VIAL IV PRN (06:46)
[2025-06-22] MEDS ORDERED: ALBUTEROL 0.5% NEB SOLN 2.5 MG/0.5 ML VIAL NEB PRN (06:46)
[2025-06-22] MEDS: EMPAGLIFLOZIN 25 MG TAB PO SCH (08:18)
[2025-06-22] MEDS: ATORVASTATIN 20 MG TAB PO SCH (09:12)
[2025-06-22] MEDS: PERFLUTREN LIPID MICROSPHERE (DEFINITY) IV ONE (10:13)
[2025-06-22 11:29] LABS: ANTI-Xa, UFH(UnfractionatedHep 0.34 IU/ml (0.3-0.7)
--- NOTE | 2025-06-22 11:39 | Hospitalist Progress Note ---
Date of Service June 22, 2025 Assessment & Plan (1) Pulmonary emboli: (2) Asthma: (3) Diabetes: Plan 35yo female with history of PCOS on OCPS, Asthma and pre-DM presenting with SOB/ROACH - patient found with markedly elevated Ddimer on 8960 with CTA revealing extensive pulmonary emboli with diffuse ground-glass haze. Patient with mild tachycardia. BP is stable. No respiratory distress. Adequate oxygenation on room air. PESI Score=33 - Very low risk. Shock index=0.7, not suggestive of occult shock. Suspect patient had a LLE DVT when she had the pain and cramping in her calf. Suspect provoked PE - patient with long car ride, OCP use. #Pulmonary Emboli -Heparin gtt --> transition to Eliquis for evening dose echo pending Encourage incentive spirometer #PCOS Patient recently restarted combination OCPs and attempt to control her "hormonal symptoms". Had not been on contraception for 11 years prior. Briefly discussed options, patient would prefer to follow-up with her OFFICE REP to discuss alternatives as she has been on multiple pills in the past. Aware that she is no longer on contraception. She also reports that she is scheduled for an endometrial biopsy soon, encouraged her to call her provider on discharge to let her know that she is on a blood thinner that should not be held for the first 30 days and this may need to be rescheduled. #Asthma - no cough, SOB or wheeze -Albuterol PRN #Diabetes -CC diet -Continue Jardiance #Hyperlipidemia -Continue Atorvastatin Dispo: Continued inpatient stay for cardiac monitoring DVT prophylaxis heparin drip plan to transition to Eliquis this evening Admission and Anticipated Discharge Date Admission Date: June 22, 2025 Subjective Patient seen lying in bed. and mother present at bedside. She recalls a story of having left leg swelling after recent travel and recently starting a estrogen containing control pill. Had an ultrasound done but was told that there is no DVT (this was done in the [facility] system so I am unable to read this. Her left leg pain has resolved. She feels short of breath with activity, she is not having any chest pain. We discussed having a blood clot and starting Eliquis In regards to the control pill, she was not using that for prevention and more so for control of her for "hormonal symptoms" with PCOS. Prefers to follow-up with her overcaster for alternative options. Aware that she is no longer on contraception. telemetry sinus rhythm in the s Review of Systems Review of Systems: All systems reviewed & are unremarkable except as noted in Subjective Physical Exam Physical Exam: General: NAD, VS as above Resp: normal respiratory effort, lungs clear to auscultation CV: slightly tachy but regular , no murmur, Abd: normal bowel sounds, non tender, no hepatosplenomegaly Extremities: Moves all extremities, no edema. Negative Homans' sign bilaterally Neuro: A&O x3, Results & Data Results & Data Vital Signs (Past 12 Hours) Vital Signs Temp Pulse Pulse Resp BP BP Pulse Ox 06/22/25 09:05 06/22/25 09:05 102 H 06/22/25 07:18 97.9 F 91 H 18 127/84 96 06/22/25 06:46 06/22/25 06:46 97.7 F 100 H 20 122/83 97 06/22/25 06:46 06/22/25 05:59 98.1 F 92 H 22 147/103 H 96 06/22/25 05:25 102 H 06/22/25 05:00 93 H 16 141/87 H 99 06/22/25 03:00 95 H 20 125/91 95 06/22/25 02:32 94 06/22/25 02:31 95 06/22/25 02:28 96 H 06/22/25 02:04 97.7 F 104 H 18 140/88 96 Pulse Ox O2 Del Method O2 Del Method 06/22/25 09:05 Room Air 06/22/25 09:05 06/22/25 07:18 Room Air 06/22/25 06:46 97 Room Air 06/22/25 06:46 Room Air 06/22/25 06:46 Room Air 06/22/25 05:59 Room Air 06/22/25 05:25 06/22/25 05:00 Room Air 06/22/25 03:00 Room Air 06/22/25 02:32 Room Air 06/22/25 02:31 Room Air 06/22/25 02:28 06/22/25 02:04 Room Air Laboratory Results CBC and chemistry reviewed troponin reviewed PG Care Time/CCT Total # of Minutes Spent Total Time Spent with Patient: Total time spent is greater than 50% in coordination of care (as documented) at patient's floor/unit and/or counseling patient: Coding Level of Care Code None Diagnoses Pulmonary emboli I26.99 Asthma J45.909 Diabetes E11.9
[2025-06-22] MEDS: CALCIUM CARBONATE 500 MG CHEWABLE TAB PO PRN (15:14)
[2025-06-22] MEDS: APIXABAN 5 MG TABLET PO SCH (20:24)
[2025-06-22] MEDS: [UNRECOGNIZED DRUG - REMARK] ONE (21:49)
[2025-06-23 06:27] LABS: Hematocrit (blood only) 43.5 % (37.0-47.0); Hemoglobin 15.2 g/dl (12.0-16.0); Mean Corpuscular Hemoglobin 29.6 pg (25.0-34.0); Mean Corpuscular Volume 84.6 fL (80.0-100.0); Platelet Count 166 K/uL (130-400); RDW Standard Deviation 37.1 fL (36.4-46.3); Red Blood Count 5.14 M/uL (4.20-5.40); White Blood Count 10.16 K/ul (4.8-10.8)
[2025-06-23 06:52] LABS: Anion Gap 7.0 (3-11); Blood Urea Nitrogen 15.0 mg/dl (6-23); Calcium 8.8 mg/dl (8.6-10.3); Carbon Dioxide 25.0 mmol/L (21-32); Chloride 108.0 mmol/L (98-107); Creatinine Clr Calc Pharmacy 111.9 ml/min; Glucose 110.0 mg/dl (70-99(Fasting)); Potassium 4.0 mmol/L (3.5-5.1); Sodium 140.0 mmol/L (136-145)
[2025-06-23 07:11] LABS: ANTI-Xa, UFH(UnfractionatedHep 0.85 IU/ml (0.3-0.7)
[2025-06-23 07:33] VITALS: BP 122/82; RESP 18; TEMP 98.2; O2SAT 96
[2025-06-23] MEDS: ACETAMINOPHEN 325 MG TAB PO PRN (08:49)
--- NOTE | 2025-06-23 10:14 | XCELERA ---
[id number] [id number]
[2025-06-23 10:43] VITALS: PULSE 94
--- NOTE | 2025-06-23 10:43 | Discharge Summary ---
Discharge Summary Date of Service June 23, 2025 Principal Dx & Hospital Course #1 = Principal Diagnosis (1) Pulmonary emboli: (2) Asthma: (3) Diabetes: Plan #Pulmonary Emboli 35yo female with history of PCOS on OCPS, Asthma and pre-DM presenting with SOB/ROACH - patient found with markedly elevated Ddimer on 8960 with CTA revealing extensive pulmonary emboli with diffuse ground-glass haze. Patient with mild tachycardia. BP is stable. No respiratory distress. Adequate oxygenation on room air. PESI Score=33 - Very low risk. Shock index=0.7, not suggestive of occult shock. Suspect patient had a LLE DVT when she had the pain and cramping in her calf. Suspect provoked PE - patient with long car ride, OCP use. Initally on heparin drip, transitioned to Eliquis. Echo without evidence of heart strain. Continue to use Incentive spirometer. #PCOS Patient recently restarted combination OCPs and attempt to control her "hormonal symptoms". Had not been on contraception for 11 years prior. Briefly discussed options, patient would prefer to follow-up with her [employer] to discuss alternatives as she has been on multiple pills in the past. Aware that she is no longer on contraception. She also reports that she is scheduled for an endometrial biopsy soon, encouraged her to call her provider on discharge to let her know that she is on a blood thinner that should not be held for the first 30 days and this may need to be rescheduled. #Asthma - no cough, SOB or wheeze -Albuterol PRN #Diabetes -Continue Jardiance #Hyperlipidemia -Continue Atorvastatin #Tricuspid Regurgitation - Moderate on echo, outpatient follow up Dispo: discharge to home today Notes For Next Care Provider needs new control option f/u on moderate TR Medication Changes From Visit Eliquis BID Admission HPI Per Admitting Provider Jennifer Cr is a pleasant 35yo female with history of Asthma, PCOS on OCPs and insulin resistance presenting from home with shortness of breath. Patient with no prior history of VTE. She does think that her maternal grandmother had blood clots in the past. On May 16 patient was in [place]. She had a long [address] home[address] They did stop and walk around. On 05/24/25 she developed severe pain and swelling in her left calf. She was seen at Urgent Care and had some blood work and a LLE doppler which was NEGATIVE for DVT at that time. On 06/16 patient woke up with some shortness of breath. She called her health line at work and was prescribed Prednisone x 5 days and Azithromycin for suspected allergy/asthma exacerbation. She has been using her home PRN Albuterol inhaler with no improvement in symptoms. This evening she was at work and her shortness of breath worsened. She reports she was having difficulty walking on the flat surfaces in her office which prompted her to come to the ER. In the ER she is afebrile, tachycardic, adequate oxygenation on room air. ER Course: Heparin gtt Discharge Exam General: NAD, VS as above Resp: normal respiratory effort, lungs clear to auscultation CV: RRR, no murmur, Abd: normal bowel sounds, non tender, no hepatosplenomegaly Extremities: Moves all extremities, no edema Neuro: A&O x3, Skin: intact, no lesions noted Discharge Plan Discharge Items Patient Disposition: Home - Self-Care Reason For Visit: PULMONARY EMBOLI Discharge Diagnosis: pulmonary elmboli Condition on Discharge: Fair Activity: Resume your previous activity Non-emergency contact: Primary Care Provider Call non-emergency contact if: you have any medication questions, your symptoms worsen and your temperature is above 101 Follow-up/Referrals: Irma Bacon DO [Primary Care Provider] - (follow up within one week) Diet: Carb Consistent or DM2 and Heart Healthy Addtl Attending Provider Instructions: Ms. Cr, Lazaro were hospitalized after having increased shortness of breath found to be from pulmonary emboli - blood clots in the lung. Thankfully, you have not required oxygen and the echocardiogram did not show evidence of strain on your heart. For the blood clot you have been started on Eliquis, take 10mg twice a day for the next 6 days (12 doses) and then take 5mg (one tab) twice a day. The Eliquis does not treat the clot in your lungs, the body will reabsorb that over time. Continue to use your incentive spirometer. The blood clot was likely provoked by travel and recent addition of estrogen containing control pills. Your control pills have been stopped and you will discuss with your OBGYN about other options. Remember to tell them about your Eliquis for your upcoming endometrial biopsy. If you have any worsening shortness of breath or chest pain please return to the hospital. Please follow up with your PCP in one week. Here are some guidelines about taking Eliquis: Increased risk of blood clots if you stop taking Eliquis. Do not stop taking Eliquis without talking to your doctor.. Stopping Eliquis increases your risk of having a stroke. Increased risk of bleeding. Eliquis can cause bleeding which can be serious and may lead to . This is because Eliquis is a blood thinner medicine (anticoagulant) that lowers blood clotting. During treatment with Eliquis you are likely to bruise more easily, and it may take longer for bleeding to stop. * If you ever cannot get bleeding to stop please report to the ER * If you have a bruise that is large/painful or swollen you should also be seen by a medical provider Call your doctor or get medical help right away if you or your child develop any of these signs or symptoms of bleeding: unexpected bleeding or bleeding that lasts a long time, such as: * nose bleeds that happen often * unusual bleeding from the gums * bleeding that is severe or you cannot control * red, pink or brown urine * bright red or black stools (looks like tar) * cough up blood or blood clots * vomit blood or your vomit looks like coffee grounds If you have a fall and hit your head, please come to the ER and get checked out. Being on a blood thinner increases your risk of brain bleeding with falls. Avoid high risk activities, such as: * standing on tall ladders * riding motorcycles * anything where you are high risk for falls or trauma Avoid taking NSAIDs (pain medication) while you are taking a blood thinner. This includes: * Ibuprofen, Aleve Advil, Naproxen. * If you are ever unsure you can ask your doctor or pharmacist. * Tylenol is SAFE to take. If you have any new or worsening chest pain or shortness of breath please return to the ER. Pending Studies at Discharge: No Stand-Alone Forms: [employer], Work/School Release, Smoking Cessation Medications and DC Order Prescriptions: New Eliquis 5 mg tablet 5 mg PO BID Qty: 72 0RF Rx Instructions: 2 tabs (10mg) BID for 6 days then transition to 1 tab (5mg) BID Continued atorvastatin 20 mg tablet albuterol sulfate [Ventolin HFA] 90 mcg/actuation HFA aerosol inhaler 1 INHALATION Jardiance 25 mg tablet Mounjaro 2.5 mg/0.5 mL pen injector SUBCUT Discontinued drospirenone-ethinyl estradiol [Zumandimine (28)] 3-0.03 mg tablet 1 tab PO DAILY Discharge Orders: Discharge Order (Routine); Ordered 06/23/25 Ordered By: Ruba Edmond/Other Patient Handouts: Pulmonary Embolism Dc Admission Data Admit Date/Time: 06/22/25 04:51 Attending Provider: Loren Brandon Admit Provider: Angelika Goss Primary Care Provider: Irma Bacon Hospital Stay Data Diagnostic Imagining Performed Chest X-Ray 06/22/25 02:08 EXAM: XR chest 1V portable CLINICAL HISTORY: Dyspnea TECHNIQUE: An X-ray image of the chest is obtained in AP projection. COMPARISON: 05/30/2017, [facility] Chest FINDINGS: Pulmonary Parenchyma: Chest leads are identified. No evidence of consolidation, collapse, or focal opacities. No pulmonary nodules are identified. No evidence of pleural effusion or pleural thickening. Prominent both gurpreet are identified Heart and Mediastinum: Heart size and shape are normal. No mediastinal widening or masses. No mediastinal lymphadenopathy. Bony Thorax: Bony thorax appears intact without fractures or deformities. Soft Tissues: Soft tissues overlying the chest wall are unremarkable. IMPRESSION: No evidence of consolidation/collapse. No pleural effusion is identified bilaterally. Prominent both gurpreet, interval new, likely due to overlapping of hilar vessels/ lymph nodes. No other significant interval change is seen Electronically signed by Tony Wilson 06-22-2025 03:32 AM Chest CTA 06/22/25 03:45 EXAM: CT angio chest PE protocol CLINICAL HISTORY: PE TECHNIQUE: Contiguous axial images were obtained from the neck base through the upper abdomen following intravenous administration of iodinated contrast material. Angiographic images were processed, 3D MIP images were acquired for interpretation. If IV contrast material had not been administered, the likelihood of detecting abnormalities relevant to the patient's condition would have been substantially decreased. Coronal and sagittal 3-D MIPs were likewise performed and indicated to increase the sensitivity of detectin diffuse clinically relevant pathology. CT scan was performed according to ALARA (as low as reasonable achievable). COMPARISON: None. FINDINGS: Evidence of intraluminal hypodense filling defects are noted involving pulmonary trunk bifurcation and bilateral main pulmonary artery ( saddle thromboembolism), extending into the right upper, mid and lower lobar artery and left lower lobar artery - suggestive of thromboembolism Diffuse ground-glass haze with multiple area of air trapping are noted involving both lungs giving mosaic attenuation. The central airways are patent. No pleural effusion. The heart, aorta, and pulmonary arteries are of normal size and configuration. There are no appreciable coronary artery and aortic atherosclerotic calcifications. No pericardial effusion is identified. The thyroid is unremarkable. No mediastinal, hilar, or axillary lymphadenopathy is noted. No suspicious lytic or sclerotic osseous lesions are identified. IMPRESSION: Extensive pulmonary thromboembolism as described. Diffuse ground-glass haze with multiple area of air trapping are noted involving both lungs giving mosaic attenuation. Electronically signed by Timmy Berman 06-22-2025 04:45 AM Pending Results Patient Have Any Pending Studies at Discharge: No Discharge Instructions Given to Patient (Per Discharging Provider) Ms. Cr, You were hospitalized after having increased shortness of breath found to be from pulmonary emboli - blood clots in the lung. Thankfully, you have not required oxygen and the echocardiogram did not show evidence of strain on your heart. For the blood clot you have been started on Eliquis, take 10mg twice a day for the next 6 days (12 doses) and then take 5mg (one tab) twice a day. The Eliquis does not treat the clot in your lungs, the body will reabsorb that o alexis time. Continue to use your incentive spirometer. The blood clot was likely provoked by travel and recent addition of estrogen containing control pills. Your control pills have been stopped and you will discuss with your OBGYN about other options. Remember to tell them about your Eliquis for your upcoming endometrial biopsy. If you have any worsening shortness of breath or chest pain please return to the hospital. Please follow up with your PCP in one week. Here are some guidelines about taking Eliquis: Increased risk of blood clots if you stop taking Eliquis. Do not stop taking Eliquis without talking to your doctor.. Stopping Eliquis increases your risk of having a stroke. Increased risk of bleeding. Eliquis can cause bleeding which can be serious and may lead to . This is because Eliquis is a blood thinner medicine (anticoagulant) that lowers blood clotting. During treatment with Eliquis you are likely to bruise more easily, and it may take longer for bleeding to stop. * If you ever cannot get bleeding to stop please report to the ER * If you have a bruise that is large/painful or swollen you should also be seen by a medical provider Call your doctor or get medical help right away if you or your child develop any of these signs or symptoms of bleeding: unexpected bleeding or bleeding that lasts a long time, such as: * nose bleeds that happen often * unusual bleeding from the gums * bleeding that is severe or you cannot control * red, pink or brown urine * bright red or black stools (looks like tar) * cough up blood or blood clots * vomit blood or your vomit looks like coffee grounds If you have a fall and hit your head, please come to the ER and get checked out. Being on a blood thinner increases your risk of brain bleeding with falls. Avoid high risk activities, such as: * standing on tall ladders * riding motorcycles * anything where you are high risk for falls or trauma Avoid taking NSAIDs (pain medication) while you are taking a blood thinner. This includes: * Ibuprofen, Aleve Advil, Naproxen. * If you are ever unsure you can ask your doctor or pharmacist. * Tylenol is SAFE to take. If you have any new or worsening chest pain or shortness of breath please return to the ER. Total Time Total Time Spent Total Time Spent (In Minutes): Time spent day of discharge 36 minutes including direct patient care, medication reconciliation, documentation, review of labs and images, and coordination of care. Coding Level of Care Code 02779 INP/OBS DISCH >30 MIN Diagnoses Pulmonary emboli I26.99 Asthma J45.909 Diabetes E11.9
--- NOTE | 2025-06-25 10:04 | Electrocardiogram Report ---
Test Reason : Blood Pressure : */* mmHG Vent. Rate : 97 BPM Atrial Rate : 97 BPM P-R Int : 124 ms QRS Dur : 92 ms QT Int : 338 ms P-R-T Axes : -20 -13 -32 degrees QTcB Int : 429 ms Normal sinus rhythm Inferior infarct , age undetermined Abnormal ECG When compared with ECG of 30-May-2017 15:31, Inferior infarct is now Present T wave inversion now evident in Inferior leads Confirmed by Valdez Mazariegos ([id number]) on 06/25/2025 10:04:24 AM Referred By: REFERRED SELF Confirmed By: Valdez Mazariegos
[2025-06-29] MEDS ORDERED: APIXABAN 5 MG TABLET PO SCH (21:00)
== END 2025-06-23 11:30 | disposition home or self-care (01) | DRG 176 ==
LOC: ED 02:00 → SUATTDRO 04:51 → 2S 04:51 → INTOOBSV 04:51 → 2S 05:59